=== PATIENT | female | born 1930 | race Caucasian/White ===

== ENCOUNTER → 2016-06-27 | Outpatient (CLI) | payer MEDICARE, OTHER ==
--- NOTE | 2016-06-27 12:31 | XR ---
EXAMINATION TYPE: XR chest 2V DATE OF EXAM: 06/27/2016 12:11 PM COMPARISON: 06/27/2015 HISTORY: Shortness of breath FINDINGS: The lungs are clear and there is no pneumothorax, pleural effusion, or focal pneumonia. Heart is mar kedly enlarged and there is postoperative change. Hyperinflation suggests COPD. Hypertrophic change o f the spine noted. IMPRESSION: 1. Stable cardiomegaly. No overt failure. Left suprahilar 1 cm nodule noted. Consider CT follow-up.
== END | disposition home or self-care (01) ==
LOC: RADXRMAIN 11:57
PROVIDERS: ATTEND Family Medicine
DX: I50.22 Chronic systolic (congestive) heart failure (principal); R91.1 Solitary pulmonary nodule; I51.7 Cardiomegaly
CPT/HCPCS: 71020

== ENCOUNTER → 2016-07-27 | Outpatient (CLI) | payer MEDICARE, OTHER ==
[2016-07-27 11:51] LABS: Blood Urea Nitrogen 23 mg/dL (7-17); Non-African American GFR(MDRD) >60 (>60 ml/min/1.73 sqM)
--- NOTE | 2016-07-27 12:37 | CT ---
EXAMINATION TYPE: CT chest w con DATE OF EXAM: 07/27/2016 12:21 PM COMPARISON: NONE HISTORY: Lung nodule CT DLP: 322.3 mGycm Automated exposure control for dose reduction was used. CONTRAST: CT scan of the chest is performed with IV Contrast, patient injected with 100 ml mL of Omnipaque 300. FINDINGS: LUNGS: The lungs are grossly clear, there is no concerning parenchymal mass or nodule identified. Hyp erinflation compatible with COPD. There is no pleural effusion or pneumothorax seen. The tracheobron chial tree is patent. MEDIASTINUM: There are no greater than 1 cm hilar or mediastinal lymph nodes. No pericardial effusi on is seen. Thoracic aorta is of normal caliber. The heart is enlarged. UPPER ABDOMEN: Splenic granulomas identified. OTHER: No additional significant abnormality is seen. IMPRESSION: 1. COPD changes. 2. Cardiomegaly.
== END ==
LOC: RADCTMAIN 11:17
PROVIDERS: ATTEND Family Medicine
DX: J44.9 Chronic obstructive pulmonary disease, unspecified (principal); I51.7 Cardiomegaly
CPT/HCPCS: 82565; 84520; 71260; 36415; Q9967

== ENCOUNTER → 2018-04-10 | Outpatient (CLI) | payer MEDICARE, OTHER | END | disposition home or self-care (01) | LOC: LABWHC1 09:29 | PROVIDERS: ATTEND Family Medicine | DX: E87.5 Hyperkalemia (principal) | CPT/HCPCS: 36415; 84132 ==

== ENCOUNTER → 2018-11-19 | Outpatient (CLI) | payer MEDICARE, OTHER ==
--- NOTE | 2018-11-19 14:42 | XR ---
EXAMINATION TYPE: XR chest 2V DATE OF EXAM: 11/19/2018 COMPARISON: Prior chest x-ray 06/27/2016 HISTORY: I 50.22, cough TECHNIQUE: Frontal and lateral views of the chest are obtained. FINDINGS: Prominent lung volumes suggest underlying COPD. There are likely coronary artery calcifica tions, patient is post median sternotomy. Patient is rotated. Interstitium is increased. No evident p neumothorax or pleural effusion. Prominence of pulmonary artery is suggestive of underlying pulmonary artery hypertension. Heart is likely enlarged but may be accentuated in its appearance due to rotati on. Aorta is dense. IMPRESSION: Correlate for pulmonary venous hypertension and interstitial edema. Possible underlying pulmonary artery hypertension.
== END | disposition home or self-care (01) ==
LOC: RADXRMAIN 11:23
PROVIDERS: ATTEND Family Medicine
DX: I50.22 Chronic systolic (congestive) heart failure (principal)
CPT/HCPCS: 71046

== ENCOUNTER 2018-11-21 10:26 | Inpatient (IN) | payer MEDICARE, OTHER ==
[2018-11-21] MEDS ORDERED: ACETAMINOPHEN TAB 325 MG TAB PO STA (10:59)
[2018-11-21 11:45] LABS: Basophils % (A) 0 %; Eosinophils # (A) 0.2 k/uL (0-0.7); Eosinophils % (A) 2 %; HCT 35.2 % (34.0-46.0); HGB 11.5 gm/dL (11.4-16.0); Lymphocytes # (A) 1.1 k/uL (1.0-4.8); Lymphocytes % (A) 13 %; MCH 30.1 pg (25.0-35.0); MCHC 32.8 g/dL (31.0-37.0); Mean Platelet Volume 7.2; Monocytes # (A) 0.4 k/uL (0-1.0); Monocytes % (A) 5 %; Neutrophils % (A) 80 %; Platelet Count 199 k/uL (150-450); RBC 3.83 m/uL (3.80-5.40); RDW 13.5 % (11.5-15.5); WBC 8.7 k/uL (3.8-10.6)
[2018-11-21 11:52] LABS: ALT 44 U/L (9-52); AST 77 U/L (14-36); African American GFR (CKD) >90 (>60 ml/min/1.73 sqM); Albumin 3.3 g/dL (3.5-5.0); Alkaline Phosphatase 78 U/L (38-126); Anion Gap 8 mmol/L; Blood Urea Nitrogen 19 mg/dL (7-17); Calcium 8.6 mg/dL (8.4-10.2); Carbon Dioxide 32 mmol/L (22-30); Chloride 98 mmol/L (98-107); Glucose 110 mg/dL (74-99); Potassium 3.1 mmol/L (3.5-5.1); Sodium 138 mmol/L (137-145); Total Bilirubin 1.2 mg/dL (0.2-1.3); Total Protein 6.1 g/dL (6.3-8.2)
[2018-11-21 12:02] LABS: Partial Thromboplastin Time 25.7 sec (22.0-30.0); Prothrombin Time 10.6 sec (9.0-12.0)
--- NOTE | 2018-11-21 12:21 | ED ---
Weakness HPI - General Chief complaint: Weakness Stated complaint: cough, weakness Time Seen by Provider: 11/21/18 10:59 Source: patient Mode of arrival: wheelchair Limitations: no limitations - History of Present Illness Initial comments: 87-year-old female presenting today for chief complaint of cough 1 week. Patient states she also feels slightly weak. Patient denies any urinary symptoms. Patient denies any chest pain she denies a shorts of breath. Denies any back pain. Patient denies a nausea vomiting or diarrhea. Patient states she was started on Augmentin Monday after presenting to the urgent care facility where chest x-ray was obtained. She states that she had. The Augmentin and discontinued this medication. She only took one dose. Remaining review of system negative. Upon arrival patient appears well no signs of acute distress. Patient is oxygen on room air. Heart rate within normal limits. However patient is febrile. Family was concerned about pneumonia and that is why they present to the emergency department today. - Related Data Home Medications Medication Instructions Recorded Confirmed ALPRAZolam [Xanax] 0.375 mg PO Q8H PRN 06/27/15 11/21/18 Atorvastatin [Lipitor] 10 mg PO DAILY 06/27/15 11/21/18 Furosemide [Lasix] 40 mg PO DAILY 06/27/15 11/21/18 Metoprolol Tartrate [Lopressor] 50 mg PO BID 06/27/15 11/21/18 amLODIPine [Norvasc] 10 mg PO DAILY 06/27/15 11/21/18 Allergies Allergy/AdvReac Type Severity Reaction Status Date / Time No Known Allergies Allergy Verified 11/21/18 10:57 Review of Systems ROS Statement: Those systems with pertinent positive or pertinent negative responses have been documented in the HPI. ROS Other: All systems not noted in ROS Statement are negative. Past Medical History Past Medical History: Heart Failure, Hypertension, Osteoarthritis (OA) History of Any Multi-Drug Resistant Organisms: None Reported Past Surgical History: Coronary Bypass/CABG Additional Past Surgical History / Comment(s): open heart surgery about 22 years ago Past Anesthesia/Blood Transfusion Reactions: No Reported Reaction Past Psychological History: No Psychological Hx Reported Smoking Status: Never smoker Past Alcohol Use History: None Reported Past Drug Use History: None Reported General Exam - General Exam Comments Initial Comments: General: The patient is awake and alert, in no distress Eye: +3 mm pupils are equal, round and reactive to light, extra-ocular movements are intact. No nystagmus. There is normal conjunctiva bilaterally. No signs of icterus. No photophobia Ears, nose, mouth and throat: There are moist mucous membranes and no oral lesions. Oropharynx was not erythematous there is no tonsillar enlargement exudates or lesions. Uvula midline. Tympanic membranes are not erythematous or is no effusions bulging or retraction. No tenderness to palpation of the mastoid. No anterior cervical lymphadenopathy. Rhinorrhea, clear and bilateral nares. No tripoding, no drooling. Neck: The neck is supple, there is no tenderness or JVD. No nuchal rigidity Cardiovascular: There is a regular rate and rhythm. No murmur, rub or gallop is appreciated. Respiratory: Right lung base has the rales. Rhonchi noted throughout. No wheezing. No stridor. No retractions or abdominal breathing. Gastrointestinal: Soft, non-distended, non-tender abdomen without masses or organomegaly noted. There is no rebound or guarding present. Bowel sounds are unremarkable. Musculoskeletal: Normal ROM, no tenderness. Strength 5/5. Sensation intact. Radial pulses equal bilaterally 2+. Neurological: A&O x 3. CN II-XII intact, There are no obvious motor or sensory deficits. Coordination appears grossly intact. Speech appears normal, no muffling. Skin: Skin is warm and dry and no rashes or lesions are noted.LE edema noted. Psychiatric: Cooperative Limitations: no limitations Course Vital Signs 11/21/18 11/21/18 11/21/18 10:35 11:30 11:35 Temperature 99.8 F H Pulse Rate 77 72 Pulse Rate [ 75 Bilateral] Respiratory 20 20 Rate Blood Pressure 120/49 118/59 O2 Sat by Pulse 92 L 95 Oximetry 11/21/18 11/21/18 11/21/18 12:00 12:30 13:00 Temperature Pulse Rate 72 76 Pulse Rate [ Bilateral] Respiratory 21 20 21 Rate Blood Pressure 116/63 119/79 127/70 O2 Sat by Pulse 95 97 96 Oximetry 11/21/18 14:18 Temperature 98.2 F Pulse Rate 69 Pulse Rate [ Bilateral] Respiratory 19 Rate Blood Pressure 122/80 O2 Sat by Pulse 97 Oximetry EKG Findings - EKG Comments: EKG Findings:: Ventricular rate 74 bpm, QRS 92 ms, QT/QTC 4:30/477. This appears to be atrial fibrillation, rate controlled versus 4:1, upon chart review-- EKG appears very similar to that of most recent previous on file. NO acute findings. NO ST elevvation or depression. Medical Decision Making - Medical Decision Making Appearing 87-year-old female presented for cough. On arrival. Concern for pneumonia. Significant right lobar pneumonia on a chest x-ray which I did review personally. Patient's laboratory studies reveal No leukocytosis. Mild hypokalemia patient had this replaced orally. Since lactic acid is within normal limits. Patient has positive nitrates and urinalysis convincing of a urinary tract infection. Patient was given 1 g of ceftriaxone in the emergency department for coverage of pneumonia community-acquired and earache tract infection. Patient denies any recent hospitalization. Patient has not been on a regimen of antibiotic she took a single dose of Augmentin. After discussing case with him provider Dr. Reis reviewed imaging studies as well as EKG. He recommended admission to Dr. bhagat. Findings were discussed the patient she is agreeable to admission. Patient transferred to floor in stable condition appearing well - Lab Data Result diagrams: 11/21/18 11:30 11/21/18 11:30 Lab Results 11/21/18 11/21/18 11/21/18 Range/Units 11:30 11:30 11:30 WBC 8.7 (3.8-10.6) k/uL RBC 3.83 (3.80-5.40) m/uL Hgb 11.5 (11.4-16.0) gm/dL Hct 35.2 (34.0-46.0) % MCV 92.0 (80.0-100.0) fL MCH 30.1 (25.0-35.0) pg MCHC 32.8 (31.0-37.0) g/dL RDW 13.5 (11.5-15.5) % Plt Count 199 (150-450) k/uL Neutrophils % 80 % Lymphocytes % 13 % Monocytes % 5 % Eosinophils % 2 % Basophils % 0 % Neutrophils # 7.0 (1.3-7.7) k/uL Lymphocytes # 1.1 (1.0-4.8) k/uL Monocytes # 0.4 (0-1.0) k/uL Eosinophils # 0.2 (0-0.7) k/uL Basophils # 0.0 (0-0.2) k/uL PT (9.0-12.0) sec INR (<1.2) APTT (22.0-30.0) sec Sodium 138 (137-145) mmol/L Potassium 3.1 L (3.5-5.1) mmol/L Chloride 98 (98-107) mmol/L Carbon Dioxide 32 H (22-30) mmol/L Anion Gap 8 mmol/L BUN 19 H (7-17) mg/dL Creatinine 0.69 (0.52-1.04) mg/dL Est GFR (CKD-EPI)AfAm >90 (>60 ml/min/1.73 sqM) Est GFR (CKD-EPI)NonAf 78 (>60 ml/min/1.73 sqM) Glucose 110 H (74-99) mg/dL Plasma Lactic Acid Jonas 1.0 (0.7-2.0) mmol/L Calcium 8.6 (8.4-10.2) mg/dL Total Bilirubin 1.2 (0.2-1.3) mg/dL AST 77 H (14-36) U/L ALT 44 (9-52) U/L Alkaline Phosphatase 78 (38-126) U/L Total Protein 6.1 L (6.3-8.2) g/dL Albumin 3.3 L (3.5-5.0) g/dL Urine Color Urine Appearance (Clear) Urine pH (5.0-8.0) Ur Specific [place] (1.001-1.035) Urine Protein (Negative) Urine Glucose (UA) (Negative) Urine Ketones (Negative) Urine Blood (Negative) Urine Nitrite (Negative) Urine Bilirubin (Negative) Urine Urobilinogen (<2.0) mg/dL Ur Leukocyte Esterase (Negative) Urine RBC (0-5) /hpf Urine WBC (0-5) /hpf Urine WBC Clumps (None) /hpf Ur Squamous Epith Cells (0-4) /hpf Urine Bacteria (None) /hpf 11/21/18 11/21/18 Range/Units 11:30 12:29 WBC (3.8-10.6) k/uL RBC (3.80-5.40) m/uL Hgb (11.4-16.0) gm/dL Hct (34.0-46.0) % MCV (80.0-100.0) fL MCH (25.0-35.0) pg MCHC (31.0-37.0) g/dL RDW (11.5-15.5) % Plt Count (150-450) k/uL Neutrophils % % Lymphocytes % % Monocytes % % Eosinophils % % Basophils % % Neutrophils # (1.3-7.7) k/uL Lymphocytes # (1.0-4.8) k/uL Monocytes # (0-1.0) k/uL Eosinophils # (0-0.7) k/uL Basophils # (0-0.2) k/uL PT 10.6 (9.0-12.0) sec INR 1.0 (<1.2) APTT 25.7 (22.0-30.0) sec Sodium (137-145) mmol/L Potassium (3.5-5.1) mmol/L Chloride (98-107) mmol/L Carbon Dioxide (22-30) mmol/L Anion Gap mmol/L BUN (7-17) mg/dL Creatinine (0.52-1.04) mg/dL Est GFR (CKD-EPI)AfAm (>60 ml/min/1.73 sqM) Est GFR (CKD-EPI)NonAf (>60 ml/min/1.73 sqM) Glucose (74-99) mg/dL Plasma Lactic Acid Jonas (0.7-2.0) mmol/L Calcium (8.4-10.2) mg/dL Total Bilirubin (0.2-1.3) mg/dL AST (14-36) U/L ALT (9-52) U/L Alkaline Phosphatase (38-126) U/L Total Protein (6.3-8.2) g/dL Albumin (3.5-5.0) g/dL Urine Color Light Yellow Urine Appearance Clear (Clear) Urine pH 6.5 (5.0-8.0) Ur Specific [place] 1.003 (1.001-1.035) Urine Protein Negative (Negative) Urine Glucose (UA) Negative (Negative) Urine Ketones Negative (Negative) Urine Blood Trace H (Negative) Urine Nitrite Positive H (Negative) Urine Bilirubin Negative (Negative) Urine Urobilinogen <2.0 (<2.0) mg/dL Ur Leukocyte Esterase Moderate H (Negative) Urine RBC 1 (0-5) /hpf Urine WBC 16 H (0-5) /hpf Urine WBC Clumps Rare H (None) /hpf Ur Squamous Epith Cells <1 (0-4) /hpf Urine Bacteria Moderate H (None) /hpf Disposition Clinical Impression: Pneumonia, UTI (urinary tract infection), Fever, Cough Disposition: ADMITTED IP TO THIS HOSP Condition: Stable Is patient prescribed a controlled substance at d/c from ED?: No Time of Disposition: 14:13 Decision to Admit Reason: Admit from EC Decision Date: 11/21/18 Decision Time: 14:13
--- NOTE | 2018-11-21 12:24 | XR ---
EXAMINATION TYPE: XR chest 2V DATE OF EXAM: 11/21/2018 COMPARISON: 11/19/2018 INDICATION: Pain cough weakness TECHNIQUE: Frontal and lateral views of the chest are obtained. FINDINGS: The heart size is largely prominent. The pulmonary vasculature is normal. There is a right middle lobe infiltrate. Correlate for pneumonia. Findings are worsening from compari son.. There is hyperinflation flattening the diaphragms and increased retrosternal airspace. Finding s can BE compatible COPD. IMPRESSION: 1. Right middle lobe infiltrate. Correlate for worsening pneumonia. 2. Findings are likely superimposed on COPD.
[2018-11-21] MEDS: SODIUM CHLORIDE 0.9% 500 ML 500 ML IV SCH ×2 (12:38→13:12)
[2018-11-21] MEDS ORDERED: cefTRIAXone IN SWFI 1,000 MG/10 ML SYRINGE IVP STA (12:53)
[2018-11-21] MEDS ORDERED: POTASSIUM CHLORIDE ER 20 MEQ TAB.ER PO STA (12:53)
[2018-11-21 13:20] LABS: Appearance,Urine Clear (Clear); Bacteria,Urine Moderate /hpf; Bilirubin,Urine Negative (Negative); Blood,Urine Trace (Negative); Color,Urine Light Yellow; Glucose,Urine (UA) Negative (Negative); Ketones,Urine Negative (Negative); Leukocyte Esterase,Urine Moderate (Negative); Nitrite,Urine Positive (Negative); PH, Urine 6.5 (5.0-8.0); Protein,Urine Negative (Negative); RBC,Urine 1 /hpf (0-5); Specific Gravity,Urine 1.003 (1.001-1.035); Squamous Epithelial Cell,Urine <1 /hpf (0-4); Urobilinogen,Urine <2.0 mg/dL (<2.0); WBC,Urine 16 /hpf (0-5)
[2018-11-21] MEDS ORDERED: ACETAMINOPHEN TAB 325 MG TAB PO PRN (14:11)
[2018-11-21] MEDS ORDERED: IBUPROFEN 400 MG TAB PO PRN (14:11)
[2018-11-21] MEDS ORDERED: NALOXONE 0.4 MG/ML 1 ML VIAL IV PRN (14:11)
[2018-11-21] MEDS ORDERED: SODIUM CHLORIDE 0.9% 1,000 ML IV SCH (14:15)
[2018-11-21] MEDS: METOPROLOL TARTRATE 50 MG TAB PO SCH (22:18)
--- NOTE | 2018-11-21 23:03 | P.HPIM ---
History of Present Illness H&P Date: 11/21/18 Chief Complaint: Cough History of present complaint: This is a pleasant 87-year-old patient of Dr. Brooks. Chronic stable medical conditions include hypertension, Vipul arthritis, coronary artery disease with a bypass. Also has underlying hyperlipidemia and anxiety. For about 10 days patient is becoming increasingly short of breath. The cough. There is little sputum. Decreased appetite and rundown. They've had a low-grade fever. Some orthopnea. Mild edema. Admitted for the same. Review of systems: GEN.: Tired EYES: None HEENT: None NECK: None RESPIRATORY: As above] CARDIOVASCULAR: As above GASTROINTESTINAL: None GENITOURINARY: None MUSCULOSKELETAL: Some pain in the joints LYMPHATICS: None HEMATOLOGICAL: None PSYCHIATRY: Anxious NEUROLOGICAL: None Social history: Does not smoke or drink alcohol. This with son and [id number]. Does use a walker. Family history: Reviewed, noncontributory presentation Physical examination: VITAL SIGNS: 99.8, 77, 20, 120/49, 92% room air GENERAL: Average built, sitting up, intermittent cough. EYES: Pupils equal. Conjunctiva normal. HEENT: External appearance of nose and ears normal, oral cavity grossly normal. NECK: JVD possible raised; masses not palpable. HEART: First and second heart sounds are normal; mild edema. LUNGS: Respiratory rate increased with basal crackles. ABDOMEN: Soft, nontender, liver spleen not palpable, no masses palpable. LYMPHATICS: No lymph nodes palpable in the axilla and neck. PSYCH: Alert and oriented x3; mood and affect normal. NEUROLOGICAL: Cranial nerves grossly intact; no facial asymmetry, power and sensation grossly intact. MUSCULAR schedule: Evidence of osteoarthritis Investigations, reviewed in the clinical context: Chest x-ray film personally reviewed by me shows cardiomegaly venous prominence EKG tracing personally reviewed by me shows questionable A. fib Assessment: -Acute on chronic congestive heart failure from underlying coronary artery disease EF not known -Coronary artery disease with prior history of bypass -Essential hypertension -Primary osteoarthritis -Acute tracheal bronchitis -Hyperlipidemia -Anxiety not otherwise specified Plan: Patient be started on IV Lasix. Put on telemetry. We'll order 2-D echocardiogram. We will consult cardiology. Home medications are reviewed. Care was discussed with the patient. Patient also put on Omnicef. Past Medical History Past Medical History: Heart Failure, Hypertension, Osteoarthritis (OA) History of Any Multi-Drug Resistant Organisms: None Reported Past Surgical History: Coronary Bypass/CABG Additional Past Surgical History / Comment(s): open heart surgery about 22 years ago Past Anesthesia/Blood Transfusion Reactions: No Reported Reaction Past Psychological History: No Psychological Hx Reported Smoking Status: Never smoker Past Alcohol Use History: None Reported Past Drug Use History: None Reported Medications and Allergies Home Medications Medication Instructions Recorded Confirmed Type ALPRAZolam [Xanax] 0.375 mg PO Q8H PRN 06/27/15 11/21/18 History Atorvastatin [Lipitor] 10 mg PO DAILY 06/27/15 11/21/18 History Furosemide [Lasix] 40 mg PO DAILY 06/27/15 11/21/18 History Metoprolol Tartrate [Lopressor] 50 mg PO BID 06/27/15 11/21/18 History amLODIPine [Norvasc] 10 mg PO DAILY 06/27/15 11/21/18 History Allergies Allergy/AdvReac Type Severity Reaction Status Date / Time No Known Allergies Allergy Verified 11/21/18 10:57 Physical Exam Vitals: Vital Signs Temp Pulse Pulse Pulse Resp BP BP 11/21/18 20:28 97.8 F 76 20 109/65 11/21/18 15:50 98.0 F 70 16 134/83 11/21/18 14:18 98.2 F 69 19 122/80 11/21/18 13:00 21 127/70 11/21/18 12:30 76 20 119/79 11/21/18 12:00 72 21 116/63 11/21/18 11:35 75 11/21/18 11:30 72 20 118/59 11/21/18 10:35 99.8 F H 77 20 120/49 Pulse Ox 11/21/18 20:28 92 L 11/21/18 15:50 96 11/21/18 14:18 97 11/21/18 13:00 96 11/21/18 12:30 97 11/21/18 12:00 95 11/21/18 11:35 11/21/18 11:30 95 11/21/18 10:35 92 L Intake and Output 11/21/18 11/21/18 11/21/18 06:59 14:59 22:59 Intake Total 540 Balance 540 Intake: Oral 540 Other: # Voids 2 Weight 67.132 kg Results CBC & Chem 7: 11/21/18 11:30 11/21/18 11:30 Labs: Abnormal Lab Results - Last 24 Hours (Table) 11/21/18 11/21/18 Range/Units 11:30 12:29 Potassium 3.1 L (3.5-5.1) mmol/L Carbon Dioxide 32 H (22-30) mmol/L BUN 19 H (7-17) mg/dL Glucose 110 H (74-99) mg/dL AST 77 H (14-36) U/L Total Protein 6.1 L (6.3-8.2) g/dL Albumin 3.3 L (3.5-5.0) g/dL Urine Blood Trace H (Negative) Urine Nitrite Positive H (Negative) Ur Leukocyte Esterase Moderate H (Negative) Urine WBC 16 H (0-5) /hpf Urine WBC Clumps Rare H (None) /hpf Urine Bacteria Moderate H (None) /hpf Microbiology - Last 24 Hours (Table) 11/21/18 12:29 Urine Culture - Preliminary Urine,Voided Thrombosis Risk Factor Assmnt - Choose All That Apply Each Factor Represents 1 point: Obesity (BMI >25) Other Risk Factors: Yes Each Risk Factor Represents 3 Points: Age 75 years or older Other congenital or acquired thrombophilia - If yes, enter type in comment: No Thrombosis Risk Factor Assessment Total Risk Factor Score: 4 Thrombosis Risk Factor Assessment Level: Moderate Risk
[2018-11-22] MEDS: BENZONATATE 100 MG CAP PO PRN ×3 (01:37→23:01)
[2018-11-22] MEDS: FUROSEMIDE 10 MG/ML 4 ML VIAL IV SCH ×2 (05:03→19:22)
[2018-11-22] MEDS ORDERED: FUROSEMIDE 40 MG TAB PO SCH (09:00)
[2018-11-22] MEDS: ATORVASTATIN 10 MG TAB PO SCH (11:17)
[2018-11-22] MEDS: METOPROLOL TARTRATE 50 MG TAB PO SCH ×2 (11:17→21:25)
[2018-11-22] MEDS: amLODIPine 10 MG TAB PO SCH (11:17)
[2018-11-22] MEDS: CEFDINIR 300 MG CAP PO SCH ×2 (11:17→21:25)
--- NOTE | 2018-11-22 12:20 | ECHOF ---
Referral Reason:sob MEASUREMENTS -------- HEIGHT: 154.9 cm WEIGHT: 66.7 kg BP: 151/72 RVIDd: 2.9 cm (< 3.3) IVSd: 1.2 cm (0.6 - 1.1) LVIDd: 4.6 cm (3.9 - 5.3) LVPWd: 1.1 cm (0.6 - 1.1) IVSs: 1.6 cm LVIDs: 3.4 cm LVPWs: 1.5 cm LA Diam: 4.5 cm (2.7 - 3.8) LAESV Index (A-L): 36.59 ml/m Ao Diam: 2.8 cm (2.0 - 3.7) AV Cusp: 1.7 cm (1.5 - 2.6) MV EXCURSION: 16.095 mm (> 18.000) MV EF SLOPE: 95 mm/s (70 - 150) EPSS: 0.4 cm RAP: 5.00 mmHg RVSP: 45.48 mmHg FINDINGS -------- Atrial fibrillation. This was a technically adequate study. The left ventricular size is normal. There is borderline concentric left ventricular hypertrophy. Overall left ventricular systolic function is normal with, an EF between 60 - 65 %. The right ventricle is normal in size. LA is moderately dilated 34-39 ml/m2 The right atrium is normal in size. Interatrial and interventricular septum intact. Aortic valve is trileaflet and is mildly thickened. The mitral valve leaflets are mildly thickened. Mild mitral annular calcification present. Mild m itral regurgitation is present. Mild tricuspid regurgitation present. There is mild to moderate pulmonary hypertension. Trace/mild (physiologic) pulmonic regurgitation. The aortic root size is normal. Normal inferior vena cava with normal inspiratory collapse consistent with estimated right atrial pre ssure of 5 mmHg. There is no pericardial effusion. CONCLUSIONS -------- 1. Atrial fibrillation. 2. This was a technically adequate study. 3. The left ventricular size is normal. 4. There is borderline concentric left ventricular hypertrophy. 5. Overall left ventricular systolic function is normal with, an EF between 60 - 65 %. 6. The right ventricle is normal in size. 7. LA is moderately dilated 34-39 ml/m2 8. The right atrium is normal in size. 9. Interatrial and interventricular septum intact. 10. Aortic valve is trileaflet and is mildly thickened. 11. The mitral valve leaflets are mildly thickened. 12. Mild mitral annular calcification present. 13. Mild mitral regurgitation is present. 14. Mild tricuspid regurgitation present. 15. There is mild to moderate pulmonary hypertension. 16. Trace/mild (physiologic) pulmonic regurgitation. 17. The aortic root size is normal. 18. Normal inferior vena cava with normal inspiratory collapse consistent with estimated right atrial pressure of 5 mmHg. 19. There is no pericardial effusion. STAFF READINESS OFFICER: Eneida Moreira RDCS
--- NOTE | 2018-11-22 12:44 | P.CRDCN ---
History of Present Illness History of present illness: This is a pleasant 87-year-old female past medical history significant for coronary artery disease s/p bypass grafting, chronic atrial fibrillation, hypertension, dyslipidemia, intracranial bleed in the past and osteoarthritis. She has followed in the past with Dr. Souza, however hasn't been to the office since 2016. We have been asked to see her in consultation for symptoms of heart failure. She states she has overall not been feeling well for the last week or so. She has been coughing bringing up clear phlegm, short of breath worse with exertion, orthopneic and increasingly fatigued. She has been initiated on IV lasix 40 mg TID and oral antibiotics for bronchitis. She is seen and examined sitting up in the chair in no acute distress. She denies chest pain, dizziness, palpitations, nausea, vomiting or diaphoresis. EKG reveals atrial fibrillation with controlled ventricular response, heart rate of 74 with poor R-wave progression. Chest x-ray reveals an infiltrate in the middle right lobe. Hyperinflation and flattening of the diaphragms noted. Echocardiogram obtained reveals preserved LV systolic function with ejection fraction 60-65%, mild MR, mild TR and mild to moderate pulmonary hypertension with an RVSP of 45 mmHg. Laboratory data reviewed, WBC 8.7, hemoglobin 11.5, platelets 199, sodium 138, potassium 3.1, creatinine 0.69, proBNP 3220. Daily cardiac medications include Lipitor 10 mg daily, Lasix 40 mg daily, Lopressor 50 mg twice a day and amlodipine 10 mg daily. At the time of my exam: CONSTITUTIONAL: Denies fever. Denies chills. EYES: Denies blurred vision. Denies vision changes. Denies eye pain. EARS, NOSE, MOUTH & THROAT: Denies headache. Denies sore throat. Denies ear pain. CARDIOVASCULAR: Denies chest pain. Denies shortness of breath. Denies orthopnea. Denies PND. Denies palpitations. RESPIRATORY: Denies cough. GASTROINTESTINAL: Denies abdominal pain. Denies diarrhea. Denies constipation. Denies nausea. Denies vomiting. MUSCULOSKELETAL: Denies myalgias. INTEGUMENTARY: Denies pruitis. Denies rash. NEUROLOGIC: Denies numbness. Denies tingling. Denies weakness. PSYCHIATRIC: Denies anxiety. Denies depression. ENDOCRINE: Denies fatigue. Denies weight change. Denies polydipsia. Denies polyurina. GENITOURINARY: Denies burning, hematuria or urgency with micturation. HEMATOLOGIC: Denies history of anemia. Denies bleeding. Blood pressure 151/72 heart rate 75 afebrile maintaining oxygen saturation on room air GENERAL: This is a 87-year-old female in no apparent distress at the time of my examination. HEENT: Head is atraumatic, normocephalic. Pupils are equal, round. Sclerae anicteric. Conjunctivae are clear. Mucous membranes of the mouth are moist. Neck is supple. There is no jugular venous distention. No carotid bruit is heard. LUNGS: Clear to auscultation no wheezes, rales or rhonchi. No chest wall tenderness is noted on palpation or with deep breathing. HEART: Irregular rate and rhythm with systolic ejection murmur at the left sternal border, no rubs or gallops. S1 and S2 heard. ABDOMEN: Soft, nontender. Bowel sounds are heard. No organomegaly noted. EXTREMITIES: Trace pitting edema bilaterally. No calf tenderness noted. VASCULAR: Radial and dorsalis pedis pulses palpated, no evidence of clubbing. NEUROLOGIC: Patient is awake, alert and oriented x3. ASSESSMENT Acute on chronic diastolic heart failure, mild. Hypokalemia Pneumonia Chronic persistent atrial fibrillation not on senior care anti-coagulation secondary to intracranial bleed 2016 History of intracranial bleed 2016, high risk for rebleeding. Not a candidate for roasterman anticoagulation Coronary artery disease s/p bypass grafting Hypertension Dyslipidemia PLAN Decrease lasix to 40 mg IV daily. Will transition to PO diuretics tomorrow. Follow electrolytes and kidney function in the morning. Document accurate intake and output along with daily weights. Repeat potassium level and replace per protocol. Thank you kindly for this consultation. Nurse Practitioner note has been reviewed, I agree with a documented findings and plan of care. Patient was seen and examined. Past Medical History Past Medical History: Heart Failure, Hypertension, Osteoarthritis (OA) History of Any Multi-Drug Resistant Organisms: None Reported Past Surgical History: Coronary Bypass/CABG Additional Past Surgical History / Comment(s): open heart surgery about 22 years ago Past Anesthesia/Blood Transfusion Reactions: No Reported Reaction Past Psychological History: No Psychological Hx Reported Smoking Status: Never smoker Past Alcohol Use History: None Reported Past Drug Use History: None Reported Medications and Allergies Home Medications Medication Instructions Recorded Confirmed Type ALPRAZolam [Xanax] 0.375 mg PO Q8H PRN 06/27/15 11/21/18 History Atorvastatin [Lipitor] 10 mg PO DAILY 06/27/15 11/21/18 History Furosemide [Lasix] 40 mg PO DAILY 06/27/15 11/21/18 History Metoprolol Tartrate [Lopressor] 50 mg PO BID 06/27/15 11/21/18 History amLODIPine [Norvasc] 10 mg PO DAILY 06/27/15 11/21/18 History Allergies Allergy/AdvReac Type Severity Reaction Status Date / Time No Known Allergies Allergy Verified 11/21/18 10:57 Physical Exam Vitals: Vital Signs Temp Pulse Pulse Pulse Resp BP BP 11/22/18 07:19 98.5 F 75 16 151/72 11/22/18 05:00 83 141/72 11/22/18 03:15 18 11/22/18 01:30 98.5 F 72 18 121/62 11/22/18 00:15 18 11/21/18 23:25 71 22 139/74 11/21/18 20:28 97.8 F 76 20 109/65 11/21/18 15:50 98.0 F 70 16 134/83 11/21/18 14:18 98.2 F 69 19 122/80 11/21/18 13:00 21 127/70 11/21/18 12:30 76 20 119/79 Pulse Ox 11/22/18 07:19 93 L 11/22/18 05:00 11/22/18 03:15 11/22/18 01:30 93 L 11/22/18 00:15 11/21/18 23:25 97 11/21/18 20:28 92 L 11/21/18 15:50 96 11/21/18 14:18 97 11/21/18 13:00 96 11/21/18 12:30 97 Intake and Output 11/21/18 11/22/18 11/22/18 22:59 06:59 14:59 Intake Total 540 50 Balance 540 50 Intake: Oral 540 50 Other: Voiding Method Toilet # Voids 1 1 Weight 66.8 kg Results 11/21/18 11:30 11/21/18 11:30 Current Medications Generic Name Dose Route Start Last Admin Trade Name Freq PRN Reason Stop Dose Admin Acetaminophen 650 mg 11/21/18 14:11 Tylenol Tab PO Q6HR PRN Mild Pain or Fever > 100.5 Alprazolam 0.375 mg 11/21/18 16:21 Xanax PO Q8H PRN Anxiety Amlodipine Besylate 10 mg 11/22/18 09:00 11/22/18 11:17 Norvasc PO 10 mg DAILY CELESTE Administration Atorvastatin Calcium 10 mg 11/22/18 09:00 11/22/18 11:17 Lipitor PO 10 mg DAILY CELESTE Administration Benzonatate 200 mg 11/22/18 01:25 11/22/18 11:16 Tessalon Perles PO 200 mg TID PRN Administration Cough Cefdinir 300 mg 11/22/18 09:00 11/22/18 11:17 Omnicef PO 300 mg BID CELESTE Administration Furosemide 40 mg 11/23/18 09:00 Lasix IV DAILY CELESTE Ibuprofen 400 mg 11/21/18 14:11 Motrin PO Q6HR PRN Mild Pain or Fever > 100.5 Metoprolol Tartrate 50 mg 11/21/18 21:00 11/22/18 11:17 Lopressor PO 50 mg BID CELESTE Administration Naloxone HCl 0.2 mg 11/21/18 14:11 Narcan IV Q2M PRN Opioid Reversal Intake and Output 11/21/18 11/22/18 11/22/18 22:59 06:59 14:59 Intake Total 540 50 Balance 540 50 Intake: Oral 540 50 Other: Voiding Method Toilet # Voids 1 1 Weight 66.8 kg 11/21/18 11:30 11/21/18 11:30
[2018-11-22] MEDS ORDERED: Potassium Replacement Protocol 1 EACH MISC MISCELLANE PRN (18:46)
[2018-11-22] MEDS ORDERED: FUROSEMIDE 10 MG/ML 4 ML VIAL IV SCH (21:00)
[2018-11-22] MEDS: POTASSIUM CHLORIDE ER 20 MEQ TAB.ER PO SCH ×2 (21:25→23:00)
--- NOTE | 2018-11-22 23:16 | P.PN ---
Progress Note - Text Progress Note Date: 11/22/18 Chief Complaint: Cough History of present complaint: This is a pleasant 87-year-old patient of Dr. Brooks. Chronic stable medical conditions include hypertension, Vipul arthritis, coronary artery disease with a bypass. Also has underlying hyperlipidemia and anxiety. For about 10 days patient is becoming increasingly short of breath. The cough. There is little sputum. Decreased appetite and rundown. They've had a low-grade fever. Some orthopnea. Mild edema. Admitted for the same. admitting diagnoses-acute CHF exacerbation, acute tracheobronchitis today-bleeding a bit better. Slight cough. did tolerate and diet. got IV Lasix.tired and rundown Review of systems: Was done for constitutional, cardiovascular, GI, pulmonary. relevant finding as above Current medications reviewed that included: IV Lasix 40 mg daily, Omnicef Physical examination: VITAL SIGNS: 98.4, 69, 16, 140 masses 54, 91% room air GENERAL:sitting up, appears more restful. EYES: Pupils equal. Conjunctiva normal. HEENT: External appearance of nose and ears normal, oral cavity grossly normal. NECK: JVD possible raised; masses not palpable. HEART: First and second heart sounds are normal; mild edema. LUNGS: Respiratory rate increased with basal crackles. ABDOMEN: Soft, nontender, liver spleen not palpable, no masses palpable. PSYCH: Alert and oriented x3; mood and affect normal. Investigations, reviewed in the clinical context: potassium 3.3 2-D echo shows EF of 60-65% Assessment: -Acute on chronic congestive heart failureEF 60-65%/tested dysfunction from underlying coronary artery disease -Coronary artery disease with prior history of bypass -Essential hypertension -Primary osteoarthritis -Acute tracheal bronchitis -Hyperlipidemia -Anxiety not otherwise specified -Persistent atrial fibrillation not on anticoagulation because of intracranial bleed in 2016 -Hypokalemia from diarrhea restless Plan: patient remained on IV Lasix. Follow up lites tomorrow. Care was discussed with the patient. Encouraged to sit up in the chair.
[2018-11-23] MEDS: METOPROLOL TARTRATE 50 MG TAB PO SCH ×2 (08:24→20:26)
[2018-11-23] MEDS: amLODIPine 10 MG TAB PO SCH (08:24)
[2018-11-23] MEDS: ATORVASTATIN 10 MG TAB PO SCH (08:24)
[2018-11-23] MEDS: CEFDINIR 300 MG CAP PO SCH ×2 (08:24→20:26)
[2018-11-23] MEDS: FUROSEMIDE 10 MG/ML 4 ML VIAL IV SCH (08:24)
[2018-11-23 09:11] LABS: African American GFR (CKD) >90 (>60 ml/min/1.73 sqM); Anion Gap 10 mmol/L; Blood Urea Nitrogen 12 mg/dL (7-17); Calcium 9.5 mg/dL (8.4-10.2); Carbon Dioxide 30 mmol/L (22-30); Chloride 99 mmol/L (98-107); Glucose 164 mg/dL (74-99); Potassium 3.7 mmol/L (3.5-5.1); Sodium 139 mmol/L (137-145)
[2018-11-23] MEDS ORDERED: POTASSIUM CHLORIDE ER 20 MEQ TAB.ER PO STA (09:21)
[2018-11-23] MEDS: ALPRAZolam 0.25 MG TAB PO PRN (20:26)
--- NOTE | 2018-11-23 21:02 | P.PN ---
Progress Note - Text Progress Note Date: 11/23/18 Chief Complaint: Cough History of present complaint: This is a pleasant 87-year-old patient of Dr. Brooks. Chronic stable medical conditions include hypertension, Vipul arthritis, coronary artery disease with a bypass. Also has underlying hyperlipidemia and anxiety. For about 10 days patient is becoming increasingly short of breath. The cough. There is little sputum. Decreased appetite and rundown. They've had a low-grade fever. Some orthopnea. Mild edema. Admitted for the same. admitting diagnoses-acute CHF exacerbation, acute tracheobronchitis today-feeling better. Breathing is improved. Did tolerate some diet. OVERALL FEELING BETTER Review of systems: Was done for constitutional, cardiovascular, GI, pulmonary. relevant finding as above Current medications reviewed that included: Lasix 40 mg IV daily, Omnicef. Physical examination: VITAL SIGNS: 98, 74, 17, 102/71, 95% on 2 L GENERAL: Sitting up, awake. EYES: Pupils equal. Conjunctiva normal. HEENT: External appearance of nose and ears normal, oral cavity grossly normal. NECK: JVD possible raised; masses not palpable. HEART: First and second heart sounds are normal; mild edema. LUNGS: Respiratory rate increased with decreased crackles. ABDOMEN: Soft, nontender, liver spleen not palpable, no masses palpable. PSYCH: Alert and oriented x3; mood and affect normal. Investigations, reviewed in the clinical context: Potassium 3.7 and creatinine 0.6 2-D echo shows EF of 60-65% Assessment: -Acute on chronic congestive heart failureEF 60-65%/ diastolic dysfunction from underlying coronary artery disease -Coronary artery disease with prior history of bypass -Essential hypertension -Primary osteoarthritis -Acute tracheal bronchitis -Hyperlipidemia -Anxiety not otherwise specified -Persistent atrial fibrillation not on anticoagulation because of intracranial bleed in 2016 -Hypokalemia from diarrhea restless Plan: Patient is slowly improving. Continue with IV Lasix. Encouraged to be out of bed. Follow electrolytes
--- NOTE | 2018-11-24 07:48 | XR ---
EXAMINATION TYPE: XR chest 2V DATE OF EXAM: 11/24/2018 HISTORY: chf. REFERENCE: Previous study dated 11/21/2018. FINDINGS: There has been a midline sternotomy. The lungs are overinflated. The heart is enlarged. There is improved aeration of the right middle lob e. There is a tiny right-sided effusion. IMPRESSION: IMPROVED AERATION, RIGHT LUNG.
[2018-11-24] MEDS: FUROSEMIDE 10 MG/ML 4 ML VIAL IV SCH (08:16)
[2018-11-24] MEDS: METOPROLOL TARTRATE 50 MG TAB PO SCH ×2 (08:17→20:46)
[2018-11-24] MEDS: ATORVASTATIN 10 MG TAB PO SCH (08:17)
[2018-11-24] MEDS: CEFDINIR 300 MG CAP PO SCH ×2 (08:17→20:46)
[2018-11-24] MEDS: amLODIPine 10 MG TAB PO SCH (08:17)
[2018-11-24] MEDS ORDERED: FUROSEMIDE 10 MG/ML 4 ML VIAL IV STA (14:31)
[2018-11-24] MEDS: ALPRAZolam 0.25 MG TAB PO PRN (20:47)
[2018-11-25] MEDS: ATORVASTATIN 10 MG TAB PO SCH (08:59)
[2018-11-25] MEDS: amLODIPine 10 MG TAB PO SCH (08:59)
[2018-11-25] MEDS: FUROSEMIDE 10 MG/ML 4 ML VIAL IV SCH (08:59)
[2018-11-25] MEDS: METOPROLOL TARTRATE 50 MG TAB PO SCH (08:59)
[2018-11-25] MEDS: CEFDINIR 300 MG CAP PO SCH (08:59)
[2018-11-25 15:24] VITALS: BP 128/77; PULSE 80; RESP 15; TEMP 98.5
--- NOTE | 2018-11-25 19:33 | P.PN ---
Progress Note - Text Progress Note Date: 11/24/18 Chief Complaint: Cough History of present complaint: This is a pleasant 87-year-old patient of Dr. Brooks. Chronic stable medical conditions include hypertension, Vipul arthritis, coronary artery disease with a bypass. Also has underlying hyperlipidemia and anxiety. For about 10 days patient is becoming increasingly short of breath. The cough. There is little sputum. Decreased appetite and rundown. They've had a low-grade fever. Some orthopnea. Mild edema. Admitted for the same. admitting diagnoses-acute CHF exacerbation, acute tracheobronchitis today-continues to feel better. Breathing is better. Appetite is improving. Minimal cough Review of systems: Was done for constitutional, cardiovascular, GI, pulmonary. relevant finding as above Current medications reviewed that included: Lasix 40 mg IV daily, Omnicef. Physical examination: Vitals-97.8, 91, 15, 131/69, 91% room air GENERAL: Sitting up, awake. EYES: Pupils equal. Conjunctiva normal. HEENT: External appearance of nose and ears normal, oral cavity grossly normal. NECK: JVD possible raised; masses not palpable. HEART: First and second heart sounds are normal; mild edema. LUNGS: Respiratory rate increased with improvement crackles. ABDOMEN: Soft, nontender, liver spleen not palpable, no masses palpable. PSYCH: Alert and oriented x3; mood and affect normal. Investigations, reviewed in the clinical context: No blood or from today 2-D echo shows EF of 60-65% Assessment: -Acute on chronic congestive heart failureEF 60-65%/ diastolic dysfunction from underlying coronary artery disease -Coronary artery disease with prior history of bypass -Essential hypertension -Primary osteoarthritis -Acute tracheal bronchitis -Hyperlipidemia -Anxiety not otherwise specified -Persistent atrial fibrillation not on anticoagulation because of intracranial bleed in 2016 -Hypokalemia from diarrhea restless Plan: IV Lasix is to be continued. We'll give an extra dose. Hoping patient can go home and next day or so. Care was discussed with the patient.
--- NOTE | 2018-11-25 19:36 | P.DS ---
Providers Date of admission: 11/21/18 14:32 Expected date of discharge: 11/25/18 Attending physician: Drew Chiu Consults: 11/21/18 22:53 Consult Physician Routine Consulting Provider: Olvin Castillo Consult Reason/Comments: CHf Do you want consulting provider notified?: Yes Primary care physician: Jarrod Brooks [facility] Course: Discharge diagnoses: -Acute on chronic congestive heart failureEF 60-65%/ diastolic dysfunction from underlying coronary artery disease -Coronary artery disease with prior history of bypass -Essential hypertension -Primary osteoarthritis -Acute tracheal bronchitis -Hyperlipidemia -Anxiety not otherwise specified -Persistent atrial fibrillation not on anticoagulation because of intracranial bleed in 2016 -Hypokalemia from diarrhea Hospital course t: This is a pleasant 87-year-old patient of Dr. Brooks. Chronic stable medical conditions include hypertension, Vipul arthritis, coronary artery disease with a bypass. Also has underlying hyperlipidemia and anxiety. For about 10 days patient is becoming increasingly short of breath. The cough. There is little sputum. Decreased appetite and rundown. They've had a low-grade fever. Some orthopnea. Mild edema. Admitted for the same. admitting diagnoses-acute CHF exacerbation, acute tracheobronchitis Responded well to Lasix. Was put on Omnicef. Did much better without discharge . Eating better. Edema had gone down Statistical Clerk Advertising: Dr. VC Troy from cardiology Physical examination: Vitals-98.5, 80, 15, 128/77, 94% room air GENERAL: Sitting up, awake. Comfort EYES: Pupils equal. Conjunctiva normal. HEENT: External appearance of nose and ears normal, oral cavity grossly normal. NECK: JVD not raised; masses not palpable. HEART: First and second heart sounds are normal; mild edema. LUNGS: Respiratory rate increased with improvement crackles. ABDOMEN: Soft, nontender, liver spleen not palpable, no masses palpable. PSYCH: Alert and oriented x3; mood and affect normal. Investigations, reviewed in the clinical context: Potassium 3.7 creatinine 0.6 2-D echo shows EF of 60-65% Disposition: Home Patient Condition at Discharge: Stable Plan - Discharge Summary New Discharge Prescriptions: New Potassium Chloride [K-Tab ER] 20 meq PO DAILY #30 tablet.er Cefdinir [Omnicef] 300 mg PO BID #6 cap Continue ALPRAZolam [Xanax] 0.375 mg PO Q8H PRN PRN Reason: Anxiety Metoprolol Tartrate [Lopressor] 50 mg PO BID Atorvastatin [Lipitor] 10 mg PO DAILY amLODIPine [Norvasc] 10 mg PO DAILY Changed Furosemide [Lasix] 40 mg PO BID #60 tab Discharge Medication List ALPRAZolam [Xanax] 0.375 mg PO Q8H PRN 06/27/15 [History] Atorvastatin [Lipitor] 10 mg PO DAILY 06/27/15 [History] Metoprolol Tartrate [Lopressor] 50 mg PO BID 06/27/15 [History] amLODIPine [Norvasc] 10 mg PO DAILY 06/27/15 [History] Cefdinir [Omnicef] 300 mg PO BID #6 cap 11/25/18 [Rx] Furosemide [Lasix] 40 mg PO BID #60 tab 11/25/18 [Rx] Potassium Chloride [K-Tab ER] 20 meq PO DAILY #30 tablet.er 11/25/18 [Rx] Follow up Appointment(s)/Referral(s): cardiology, [Other] - 1 Week [facility], [NON-STAFF] - As Needed Jarrod Brooks DO [Primary Care Provider] - 1-2 days Ambulatory/Diagnostic Orders: Basic Metabolic Panel [LAB.AMB] Time Frame: 3 Days, Location: None Selected Patient Instructions/Handouts: Viral Pneumonia (DC), Urinary Tract Infection in Women (DC) Discharge Disposition: HOME SELF-CARE
== END 2018-11-25 16:03 | disposition home or self-care (01) | DRG 292 ==
LOC: EC 10:26 → 4MS4W 14:32 → 4SSUR 11-22 01:29
PROVIDERS: ADMIT Hospitalist; ATTEND Hospitalist
DX: I11.0 Hypertensive heart disease with heart failure (principal); I48.1 Persistent atrial fibrillation; N39.0 Urinary tract infection, site not specified; E78.5 Hyperlipidemia, unspecified; E87.6 Hypokalemia; F41.9 Anxiety disorder, unspecified; I25.10 Atherosclerotic heart disease of native coronary artery without angina pectoris; I27.20 Pulmonary hypertension, unspecified; I50.33 Acute on chronic diastolic (congestive) heart failure; J20.9 Acute bronchitis, unspecified; M19.90 Unspecified osteoarthritis, unspecified site; B96.1 Klebsiella pneumoniae [K. pneumoniae] as the cause of diseases classified elsewhere; Z79.899 Other long term (current) drug therapy; Z86.73 Personal history of transient ischemic attack (TIA), and cerebral infarction without residual deficits; Z95.1 Presence of aortocoronary bypass graft; I08.1 Rheumatic disorders of both mitral and tricuspid valves
CPT/HCPCS: 36415; 71046; 80048; 80053; 81001; 83605; 83880; 84132; 84145; 85025; 85610; 85730; 87040; 87077; 87086; 87186; 93005; 93306; 96361; 96374; 99285

== ENCOUNTER 2019-09-21 09:51 | Inpatient (IN) | payer MEDICARE, OTHER ==
[2019-09-21 10:37] LABS: Basophils % (A) 1 %; Eosinophils # (A) 0.2 k/uL (0-0.7); Eosinophils % (A) 3 %; HCT 38.7 % (34.0-46.0); HGB 13.1 gm/dL (11.4-16.0); Lymphocytes # (A) 0.9 k/uL (1.0-4.8); Lymphocytes % (A) 14 %; MCH 32.9 pg (25.0-35.0); MCHC 33.7 g/dL (31.0-37.0); MCV 97.6 fL (80.0-100.0); Mean Platelet Volume 8.3; Monocytes # (A) 0.4 k/uL (0-1.0); Monocytes % (A) 6 %; Neutrophils # (A) 5.1 k/uL (1.3-7.7); Neutrophils % (A) 76 %; Platelet Count 175 k/uL (150-450); RBC 3.97 m/uL (3.80-5.40); RDW 13.8 % (11.5-15.5); WBC 6.7 k/uL (3.8-10.6)
[2019-09-21 10:47] LABS: Albumin 3.9 g/dL (3.5-5.0); Calcium 9.2 mg/dL (8.4-10.2); Phosphorus 3.5 mg/dL (2.5-4.5); Potassium 4.3 mmol/L (3.5-5.1); Total Protein 6.9 g/dL (6.3-8.2)
--- NOTE | 2019-09-21 10:59 | XR ---
EXAMINATION TYPE: XR chest 2V DATE OF EXAM: 09/21/2019 HISTORY: sob. REFERENCE: Previous study dated 11/24/2018. FINDINGS: There has been a midline sternotomy. The lungs are overinflated. The heart is enlarged. There are small, bilateral pleural effusions. Ther e is a chronic density silhouetting the right heart border. This may represent chronic right middle l obe atelectasis. Pulmonary vasculature is normal. No edematous changes seen. IMPRESSION: 1. COPD. 2. CARDIOMEGALY. 3. CHRONIC DENSITY SILHOUETTING THE RIGHT HEART BORDER REPRESENTING CHRONIC ATELECTASIS INVOLVING THE RIGHT MIDDLE LOBE.
[2019-09-21] MEDS ORDERED: FUROSEMIDE 10 MG/ML 4 ML VIAL IV STA (11:17)
--- NOTE | 2019-09-21 11:50 | ED ---
General Adult HPI <Lai Roque - Last Filed: 09/21/19 11:51> - General Source: patient, family, RN notes reviewed, old records reviewed Mode of arrival: wheelchair Limitations: no limitations <Ed Cantor - Last Filed: 09/21/19 12:34> - General Chief complaint: Shortness of Breath Stated complaint: SOB Time Seen by Provider: 09/21/19 10:00 - History of Present Illness Initial comments: 88-year-old female patient with past history significant for hypertension, coronary artery disease, congestive heart failure presents to ED for chief complaint of shortness of breath. Patient was difficult last 3 days she has had mild dyspnea. Also reports that she has had leg swelling. Patient does report edly take Lasix 40 mg once per day at night. Denies any chest pain. Patient has been quarantining at home denies any other complaints. Systemic: Pt denies fatigue, fever/chills, rash. Pt denies weakness, night sweats, weight loss. Neuro: Pt denies headache, visual disturbances, syncope or pre-syncope. HEENT: Pt denies ocular discharge or irritation, otalgia, rhinorrhea, pharyngitis or notable lymphadenopathy. Cardiopulmonary: Pt denies chest pain, heart palpitations, dyspnea on exertion. Abdominal/GI: Pt denies abdominal pain, n/v/d. : Pt denies dysuria, burning w/ urination, frequency/urgency. Denies new onset urinary or bowel incontinence. MSK: Pt denies myalgia, loss of strength or function in extremities. Neuro: Pt denies new onset weakness, paresthesias. (Ed Cantor) - Related Data Home Medications Medication Instructions Recorded Confirmed ALPRAZolam [Xanax] 0.375 mg PO Q8H PRN 06/27/15 11/21/18 Atorvastatin [Lipitor] 10 mg PO DAILY 06/27/15 11/21/18 Metoprolol Tartrate [Lopressor] 50 mg PO BID 06/27/15 11/21/18 amLODIPine [Norvasc] 10 mg PO DAILY 06/27/15 11/21/18 Previous Rx's Medication Instructions Recorded Cefdinir [Omnicef] 300 mg PO BID #6 cap 11/25/18 Furosemide [Lasix] 40 mg PO BID #60 tab 11/25/18 Potassium Chloride [K-Tab ER] 20 meq PO DAILY #30 tablet.er 11/25/18 Allergies Allergy/AdvReac Type Severity Reaction Status Date / Time No Known Allergies Allergy Verified 09/21/19 09:58 Review of Systems ROS Other: All systems not noted in ROS Statement are negative. <Lai Roque - Last Filed: 09/21/19 11:51> ROS Other: All systems not noted in ROS Statement are negative. <Ed Cantor - Last Filed: 09/21/19 12:34> ROS Statement: Those systems with pertinent positive or pertinent negative responses have been documented in the HPI. Past Medical History Past Medical History: Coronary Artery Disease (CAD), Heart Failure, Hypertension, Osteoarthritis (OA) History of Any Multi-Drug Resistant Organisms: None Reported Past Surgical History: Coronary Bypass/CABG Additional Past Surgical History / Comment(s): open heart surgery about 22 years ago Past Anesthesia/Blood Transfusion Reactions: No Reported Reaction Past Psychological History: No Psychological Hx Reported Smoking Status: Never smoker Past Alcohol Use History: None Reported Past Drug Use History: None Reported <Ed Cantor - Last Filed: 09/21/19 12:34> General Exam Limitations: no limitations <Ed Cantor - Last Filed: 09/21/19 12:34> - General Exam Comments Initial Comments: Constitutional: NAD, AOX3, Pt has pleasant affect. HEENT: NC/AT, trachea midline, neck supple, no lymphadenopathy. Posterior pharynx non erythematous, without exudates. External ears appear normal, without discharge. Mucous membranes moist. Eyes PERRLA, EOM intact. There is no scleral icterus. No pallor noted. Cardiopulmonary: RRR, no murmurs, rubs or gallops, no JVD noted. Mild crackles noted at lung bases. +2 lower extremity edema noted. Abdominal exam: Abdomen soft and non-distended. Abdomen non-tender to palpation in all 4 quadrants. Bowel sounds active in LLQ. No hepatosplenomegaly. No ecchymosis Neuro: CN II-XII grossly intact. No nuchal rigidity. No raccon eyes, no kate sign, no hemotympanum. No cervical spinal tenderness. MSK: No posterior calf tenderness bilaterally, homans sign negative bilaterally. Posterior tibialis and radial pulse +2 bilaterally. Sensation intact in upper and lower extremities. Full active ROM in upper and lower extremities, 5/5 stregnth. (Ed Cantor) Course Vital Signs 09/21/19 09/21/19 09/21/19 09:54 10:30 11:30 Temperature 98.3 F Pulse Rate 67 62 Respiratory 18 24 16 Rate Blood Pressure 117/71 120/64 O2 Sat by Pulse 97 97 Oximetry Medical Decision Making - Lab Data Result diagrams: 09/21/19 10:25 09/21/19 10:25 <Lai Roque - Last Filed: 09/21/19 11:51> - Lab Data Result diagrams: 09/21/19 10:25 09/21/19 10:25 - EKG Data -: EKG Interpreted by Me (and Dr. Roque ) <Ed Cantor - Last Filed: 09/21/19 12:34> - Medical Decision Making Patient reevaluated and reexamined by myself, Dr. Roque. Patient resting comfortably in bed. Patient does admit to having some dyspnea. Patient has bilateral leg edema. Breath sounds are diminished bilaterally. Results reviewed. Case discussed with Dr. Gaffney, who will admit covered for Dr. Chiu, who admits for Dr. Brooks. (Lai Roque) 88-year-old female patient with past history significant for hypertension, coronary artery disease, congestive heart failure presents to ED for chief complaint of shortness of breath. Patient was difficult last 3 days she has had mild dyspnea. Also reports that she has had leg swelling. Patient does reportedly take Lasix 40 mg once per day at night. Denies any chest pain. Joshua hawthorne has been quarantining at home denies any other complaints. Patient will signs are stable, afebrile. Physical exam displayed mild crackles noted at lung bases. +2 lower extremity edema bilaterally. Laboratory investigations significant for BNP 3120 slightly higher than baseline. Patient EKG does reveal atrial fibrillation which patient has history. Patient is not anticoagulated due to history of intracranial hemorrhage. Chest x-ray displayed COPD, cardiomegaly. Chronic atelectasis involving the right middle lobe. Patient was administered home dose of Lasix IV. D-dimer was elevated outpatient CTA is pending. Patient will be admitted for further evaluation dyspnea. Case discus sed with Dr. Roque. (Ed Cantor) - Lab Data Lab Results 09/21/19 09/21/19 09/21/19 Range/Units 10:25 10:25 10:25 WBC 6.7 (3.8-10.6) k/uL RBC 3.97 (3.80-5.40) m/uL Hgb 13.1 (11.4-16.0) gm/dL Hct 38.7 (34.0-46.0) % MCV 97.6 (80.0-100.0) fL MCH 32.9 (25.0-35.0) pg MCHC 33.7 (31.0-37.0) g/dL RDW 13.8 (11.5-15.5) % Plt Count 175 (150-450) k/uL Neutrophils % 76 % Lymphocytes % 14 % Monocytes % 6 % Eosinophils % 3 % Basophils % 1 % Neutrophils # 5.1 (1.3-7.7) k/uL Lymphocytes # 0.9 L (1.0-4.8) k/uL Monocytes # 0.4 (0-1.0) k/uL Eosinophils # 0.2 (0-0.7) k/uL Basophils # 0.0 (0-0.2) k/uL D-Dimer (<0.60) mg/L FEU Sodium 138 (137-145) mmol/L Potassium 4.3 (3.5-5.1) mmol/L Chloride 105 (98-107) mmol/L Carbon Dioxide 24 (22-30) mmol/L Anion Gap 9 mmol/L BUN 25 H (7-17) mg/dL Creatinine 0.98 (0.52-1.04) mg/dL Est GFR (CKD-EPI)AfAm 59 (>60 ml/min/1.73 sqM) Est GFR (CKD-EPI)NonAf 51 (>60 ml/min/1.73 sqM) Glucose 126 H (74-99) mg/dL Calcium 9.2 (8.4-10.2) mg/dL Phosphorus 3.5 (2.5-4.5) mg/dL Magnesium 2.0 (1.6-2.3) mg/dL Total Bilirubin 1.0 (0.2-1.3) mg/dL AST 33 (14-36) U/L ALT 21 (4-34) U/L Alkaline Phosphatase 69 (38-126) U/L Troponin I (0.000-0.034) ng/mL NT-Pro-B Natriuret Pep 3720 pg/mL Total Protein 6.9 (6.3-8.2) g/dL Albumin 3.9 (3.5-5.0) g/dL Coronavirus (PCR) (Not Detectd) 09/21/19 09/21/19 09/21/19 Range/Units 10:25 10:25 11:30 WBC (3.8-10.6) k/uL RBC (3.80-5.40) m/uL Hgb (11.4-16.0) gm/dL Hct (34.0-46.0) % MCV (80.0-100.0) fL MCH (25.0-35.0) pg MCHC (31.0-37.0) g/dL RDW (11.5-15.5) % Plt Count (150-450) k/uL Neutrophils % % Lymphocytes % % Monocytes % % Eosinophils % % Basophils % % Neutrophils # (1.3-7.7) k/uL Lymphocytes # (1.0-4.8) k/uL Monocytes # (0-1.0) k/uL Eosinophils # (0-0.7) k/uL Basophils # (0-0.2) k/uL D-Dimer 4.49 H (<0.60) mg/L FEU Sodium (137-145) mmol/L Potassium (3.5-5.1) mmol/L Chloride (98-107) mmol/L Carbon Dioxide (22-30) mmol/L Anion Gap mmol/L BUN (7-17) mg/dL Creatinine (0.52-1.04) mg/dL Est GFR (CKD-EPI)AfAm (>60 ml/min/1.73 sqM) Est GFR (CKD-EPI)NonAf (>60 ml/min/1.73 sqM) Glucose (74-99) mg/dL Calcium (8.4-10.2) mg/dL Phosphorus (2.5-4.5) mg/dL Magnesium (1.6-2.3) mg/dL Total Bilirubin (0.2-1.3) mg/dL AST (14-36) U/L ALT (4-34) U/L Alkaline Phosphatase (38-126) U/L Troponin I <0.012 (0.000-0.034) ng/mL NT-Pro-B Natriuret Pep pg/mL Total Protein (6.3-8.2) g/dL Albumin (3.5-5.0) g/dL Coronavirus (PCR) Not Detected (Not Detectd) - EKG Data EKG Comments: Ventricular rate 67, QRS 90, QT/QTc 456/41. Atrial fibrillation, rightward axis. Low voltage QRS. No concern for acute ischemia. (Ed Cantor) Disposition <Lai Roque - Last Filed: 09/21/19 11:51> <Ed Cantor - Last Filed: 09/21/19 12:34> Clinical Impression: Dyspnea Disposition: ADMITTED IP TO THIS [facility] Condition: Serious Referrals: Jarrod Brooks DO [Primary Care Provider] - 1-2 days
[2019-09-21] MEDS ORDERED: NALOXONE 0.4 MG/ML 1 ML VIAL IV PRN (12:33)
[2019-09-21 12:38] LABS: Appearance,Urine Clear (Clear); Bacteria,Urine Rare /hpf; Bilirubin,Urine Negative (Negative); Blood,Urine Trace (Negative); Color,Urine Yellow; Glucose,Urine (UA) Negative (Negative); Hyaline Casts,Urine 27 /lpf (0-2); Ketones,Urine Negative (Negative); Leukocyte Esterase,Urine Trace (Negative); Mucus,Urine Rare /hpf; Nitrite,Urine Negative (Negative); PH, Urine 5.5 (5.0-8.0); Protein,Urine Negative (Negative); RBC,Urine 2 /hpf (0-5); Specific Gravity,Urine 1.012 (1.001-1.035); Squamous Epithelial Cell,Urine 1 /hpf (0-4); Urobilinogen,Urine <2.0 mg/dL (<2.0); WBC,Urine 2 /hpf (0-5)
--- NOTE | 2019-09-21 13:55 | CT ---
EXAMINATION TYPE: CT chest angio for PE DATE OF EXAM: 09/21/2019 COMPARISON: None. HISTORY: dyspnea, elevated d dimer CT DLP: 294.3 mGycm Automated exposure control for dose reduction was used. CONTRAST: CT Chest for pulmonary embolism performed with with IV Contrast, patient injected with 80 mL of Isovu e 370. FINDINGS: There are small, bilateral effusions, greater on the right than left. There is atelectatic change present at the lung bases. There is nonspecific adenopathy in the right axilla. There is no definite mediastinal or hilar adenop athy. There is no evidence of pulmonary embolus. The aorta is normal in caliber without evidence of dissection. The heart is enlarged. There is no per icardial fluid. There is granulomatous change within the spleen. There is hypertrophic spondylosis and degenerative disc disease within the spine. There has been a pr evious midline sternotomy. IMPRESSION: 1. THIS EXAMINATION IS NEGATIVE FOR PULMONARY EMBOLUS. 2. BILATERAL EFFUSIONS SLIGHTLY LARGER ON THE RIGHT THAN THE LEFT. 3. CARDIOMEGALY. 4. NONSPECIFIC ADENOPATHY IN THE RIGHT AXILLA. 5. 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 6. DEGENERATIVE CHANGES WITHIN THE SPINE.
[2019-09-21] MEDS: ATORVASTATIN 10 MG TAB PO SCH (20:08)
[2019-09-21] MEDS: FUROSEMIDE 10 MG/ML 2 ML VIAL IV SCH (20:08)
[2019-09-21] MEDS: ALPRAZolam 0.25 MG TAB PO SCH (21:56)
--- NOTE | 2019-09-22 00:09 | P.HPIM ---
History of Present Illness H&P Date: 09/21/19 Chief Complaint: Leg swelling Patient is a 88-year-old female with a known history of chronic CHF with diastolic dysfunction, atrial fibrillation currently not on anticoagulation, coronary artery disease with history of CABG, hypertension, osteoarthritis came to ER with complaints of bilateral lower swelling and shortness of breath. Patient says that she has been having increased swelling and minimal dyspnea for the past 3 days which is worsening. Patient does take Lasix at home. No complaints of chest pain. No palpitations. Denied any complaints of fever. No cough or sputum production. Patient has been quadrant and herself at home. Patient lives by herself. Was brought to the hospital by her daughter. EKG showed atrial fibrillation. Chest x-ray showed COPD, cardiomegaly, chronic density silhouetting the right heart border representing chronic atelectasis involving the right middle lobe. CT angiogram is negative for pulmonary embolism. Bilateral pleural effusion slightly larger on the right than the left. Cardiomegaly. D-dimer 4.49 BNP 3720, troponin 3 negative. Coronary is PCR negative. Patient was given a dose of IV Lasix in the ER. Review of Systems Constitutional: Patient denies any fever or chills . No generalized weakness or weight loss. Abdomen: Patient denied nausea vomiting and diarrhea and abdominal pain. Cardiovascular: Patient denies any chest pain . Does have short of breath no palpitations. Increased leg swelling. Respiratory: patient denied any cough is from production. No shortness of breath Neurologic: Patient denied any numbness or tingling headache. Musculoskeletal: Patient denies any complaints of joint swelling or deformity. Skin: Negative Psychiatric: Negative Endocrine: No heat or cold intolerance. No recent weight gain. Genitourinary: No dysuria or hematuria. All other 14 point ROS negative except the above Past Medical History Past Medical History: Coronary Artery Disease (CAD), Heart Failure, Hype rtension, Osteoarthritis (OA) History of Any Multi-Drug Resistant Organisms: None Reported Past Surgical History: Coronary Bypass/CABG Additional Past Surgical History / Comment(s): open heart surgery about 22 years ago Past Anesthesia/Blood Transfusion Reactions: No Reported Reaction Past Psychological History: No Psychological Hx Reported Smoking Status: Never smoker Past Alcohol Use History: None Reported Past Drug Use History: None Reported Medications and Allergies Home Medications Medication Instructions Recorded Confirmed Type ALPRAZolam [Xanax] 0.125 mg PO HS 06/27/15 09/21/19 History Atorvastatin [Lipitor] 10 mg PO HS 06/27/15 09/21/19 History Metoprolol Tartrate [Lopressor] 50 mg PO DAILY 06/27/15 09/21/19 History amLODIPine [Norvasc] 10 mg PO DAILY 06/27/15 09/21/19 History Potassium Chloride [K-Tab ER] 20 meq PO DAILY #30 tablet.er 11/25/18 09/21/19 Rx Aspirin EC [Ecotrin Low Dose] 81 mg PO DAILY 09/21/19 09/21/19 History Furosemide [Lasix] 20 mg PO BID 09/21/19 09/21/19 History Allergies Allergy/AdvReac Type Severity Reaction Status Date / Time No Known Allergies Allergy Verified 09/21/19 12:37 Physical Exam Vitals: Vital Signs Temp Pulse Pulse Resp BP BP Pulse Ox 09/21/19 19:51 97.9 F 66 18 132/61 95 09/21/19 16:48 68 18 128/70 97 09/21/19 13:37 97.2 F L 60 16 129/82 96 09/21/19 11:30 62 16 120/64 97 09/21/19 10:30 24 09/21/19 09:54 98.3 F 67 18 117/71 97 Intake and Output 09/21/19 09/21/19 09/21/19 06:59 14:59 22:59 Intake Total 120 Output Total 200 450 Balance -200 -330 Intake: Oral 120 Output: Urine 200 450 Other: Voiding Method Toilet # Voids 1 Weight 63.503 kg PHYSICAL EXAMINATION: Patient is lying in the bed comfortably, no acute distress, awake alert and oriented. Hard of hearing. HEENT: Normocephalic. Neck is supple. Pupils reactive. Nostrils clear. Oral cavity is moist. Ears reveal no drainage. Neck reveals no JVD, carotid bruits, or thyromegaly. CHEST EXAMINATION: Trachea is central. Symmetrical expansion. Bibasilar diminished air entry. No wheezing. Lung lopez clear to auscultation and percussion. CARDIAC: Normal S1, S2 with no gallops. No murmurs . Irregular rhythm ABDOMEN: Soft. Bowel sounds normal. No organomegaly. No abdominal bruits. Extremities: 2+ bilateral pedal edema, mainly the ankles. No clubbing or cyanosis Neurologically awake, alert, oriented x3 with well-coordinated movements. Hard of hearing. No focal deficits noted Skin: No rash or skin lesions. Psychiatric: Coperative. Nonsuicidal Musculoskeletal: No joint swelling or deformity. Normal range of motion. Results CBC & Chem 7: 09/21/19 10:25 09/21/19 10:25 Labs: Abnormal Lab Results - Last 24 Hours (Table) 09/21/19 09/21/19 09/21/19 Range/Units 10:25 10:25 10:25 Lymphocytes # 0.9 L (1.0-4.8) k/uL D-Dimer 4.49 H (<0.60) mg/L FEU BUN 25 H (7-17) mg/dL Glucose 126 H (74-99) mg/dL Urine Blood (Negative) Ur Leukocyte Esterase (Negative) Urine Bacteria (None) /hpf Hyaline Casts (0-2) /lpf Urine Mucus (None) /hpf 09/21/19 Range/Units 12:00 Lymphocytes # (1.0-4.8) k/uL D-Dimer (<0.60) mg/L FEU BUN (7-17) mg/dL Glucose (74-99) mg/dL Urine Blood Trace H (Negative) Ur Leukocyte Esterase Trace H (Negative) Urine Bacteria Rare H (None) /hpf Hyaline Casts 27 H (0-2) /lpf Urine Mucus Rare H (None) /hpf Thrombosis Risk Factor Assmnt - DVT/VTE Prophylaxis DVT/VTE Prophylaxis: Pharmacologic Prophylaxis ordered - Choose All That Apply Any of the Below Risk Factors Present?: No Each Risk Factor Represents 3 Points: Age 75 years or older Thrombosis Risk Factor Assessment Total Risk Factor Score: 3 Thrombosis Risk Factor Assessment Level: Moderate Risk Assessment and Plan Assessment: Worsening leg swelling and dyspnea likely due to acute on chronic CHF with diastolic dysfunction Bilateral pleural effusion right greater than left Elevated d-dimer level. CTA negative for pulmonary embolism. Chronic atrial fibrillation. Rate controlled. Not on anticoagulation at home. Coronary artery disease with history of CABG Hypertension Osteoarthritis DVT prophylaxis with heparin subcu Plan: Patient will be continued on Lasix 20 mg twice daily and monitor blood pressure and renal function closely. Continue with aspirin, statins and metoprolol. Patient also takes Norvasc at home. CT angiogram is negative for pulmonary embolism. Cardiology was consulted and further recommendations based on the clinical course. Time with Patient: Greater than 30
[2019-09-22] MEDS: HEPARIN SODIUM,PORCINE 5,000 UNIT/ML 1 ML VIAL SQ SCH ×4 (01:17→22:44)
[2019-09-22 06:58] LABS: Basophils % (A) 1 %; Eosinophils # (A) 0.2 k/uL (0-0.7); Eosinophils % (A) 3 %; HCT 34.2 % (34.0-46.0); HGB 11.8 gm/dL (11.4-16.0); Lymphocytes % (A) 18 %; MCH 32.1 pg (25.0-35.0); MCHC 34.4 g/dL (31.0-37.0); MCV 93.2 fL (80.0-100.0); Mean Platelet Volume 8.4; Monocytes # (A) 0.4 k/uL (0-1.0); Monocytes % (A) 8 %; Neutrophils # (A) 3.8 k/uL (1.3-7.7); Neutrophils % (A) 69 %; Platelet Count 171 k/uL (150-450); RBC 3.67 m/uL (3.80-5.40); RDW 14.1 % (11.5-15.5); WBC 5.6 k/uL (3.8-10.6)
[2019-09-22 07:09] LABS: Calcium 8.7 mg/dL (8.4-10.2); Potassium 3.1 mmol/L (3.5-5.1)
[2019-09-22] MEDS: FUROSEMIDE 10 MG/ML 2 ML VIAL IV SCH ×2 (08:19→20:38)
[2019-09-22] MEDS: ASPIRIN 81 MG PO SCH (08:19)
[2019-09-22] MEDS: METOPROLOL TARTRATE 50 MG TAB PO SCH (08:19)
[2019-09-22] MEDS: POTASSIUM CHLORIDE ER 20 MEQ TAB.ER PO SCH (08:20)
--- NOTE | 2019-09-22 10:07 | US ---
EXAMINATION TYPE: US venous doppler duplex LE DATE OF EXAM: 09/22/2019 12:06 AM COMPARISON: NONE CLINICAL HISTORY: Leg swelling. SIDE PERFORMED: Bilateral TECHNIQUE: The lower extremity deep venous system is examined utilizing real time linear array sonog chitra with graded compression, doppler sonography and color-flow sonography. VESSELS IMAGED: External Iliac Vein (EIV) Common Femoral Vein Deep Femoral Vein Greater Saphenous Vein * Femoral Vein Popliteal Vein Small Saphenous Vein * Proximal Calf Veins (* superficial vessels) Right Leg: Negative for DVT Left Leg: Negative for DVT No popliteal fossa lesion is seen. IMPRESSION: THIS EXAMINATION IS NEGATIVE FOR DVT IN BOTH LEGS.
--- NOTE | 2019-09-22 15:15 | P.CRDCN ---
History of Present Illness Consult date: 09/22/19 History of present illness: This is Dr. SEPULVEDA dictating a consult note on this patient Impression: Patient presented with . She has orthopnea as well as shortness of b She has bilateral pleur Pansystolic murmur consistent with mitral re Plan: 2-D echo Doppler study Continue diuretics History of present illness: Patient presents to the hospital with shortness of breath for the last 3 days including lower extremity edema She has a history of hypertension coronary artery disease congestive heart failure She denied any fever or chills She was afebrile 98.3F pulse rate in the 60s, blood pressure 120/64 mmHg in the ER for Review of systems No fever chills or rigors No cough phlegm or expectoration No nausea vomiting or diarrhea No hematuria dysuria No muscular skeletal complaints No neurologic complaints No skin lesions On examination VitalsBlood pressure 139/60 mmHg pulse rate in the 60s Afebrile temperature 98.7 Patient looks comfortable Pansystolic murmur over Breath sounds are reduc especially at bases AbdMinimal lower extremity Review of data CT of the chest did not show any evidence for pulmonary embolism She had bilateral pleural effusions slightly larger than the right No evidence for aortic dissection no pericardial effusion No granulomas in the spleen noted Twelve-lead EKG shows atrial fibrillation with a controlled ventricular response Medications reviewed and include Lipitor Lopressor 50 g twice daily Lasix 20 mg twice daily amlodipine 10 mg daily oral potassium and baby aspirin Labs are reviewed hemoglobin 13.1 Sodium 138 potassium 4.3 BUN 25 creatinine 0.98 Normal troponins Past Medical History Past Medical History: Coronary Artery Disease (CAD), Heart Failure, Hypertension, Osteoarthritis (OA) History of Any Multi-Drug Resistant Organisms: None Reported Past Surgical History: Coronary Bypass/CABG Additional Past Surgical History / Comment(s): open heart surgery about 22 years ago Past Anesthesia/Blood Transfusion Reactions: No Reported Reaction Past Psychological History: No Psychological Hx Reported Smoking Status: Never smoker Past Alcohol Use History: None Reported Past Drug Use History: None Reported Medications and Allergies Home Medications Medication Instructions Recorded Confirmed Type ALPRAZolam [Xanax] 0.125 mg PO HS 06/27/15 09/21/19 History Atorvastatin [Lipitor] 10 mg PO HS 06/27/15 09/21/19 History Metoprolol Tartrate [Lopressor] 50 mg PO DAILY 06/27/15 09/21/19 History amLODIPine [Norvasc] 10 mg PO DAILY 06/27/15 09/21/19 History Potassium Chloride [K-Tab ER] 20 meq PO DAILY #30 tablet.er 11/25/18 09/21/19 Rx Aspirin EC [Ecotrin Low Dose] 81 mg PO DAILY 09/21/19 09/21/19 History Furosemide [Lasix] 20 mg PO BID 09/21/19 09/21/19 History Allergies Allergy/AdvReac Type Severity Reaction Status Date / Time No Known Allergies Allergy Verified 09/21/19 12:37 Physical Exam Vitals: Vital Signs Temp Pulse Pulse Resp BP BP Pulse Ox 09/21/19 16:48 68 18 128/70 97 09/21/19 13:37 97.2 F L 60 16 129/82 96 09/21/19 11:30 62 16 120/64 97 09/21/19 10:30 24 09/21/19 09:54 98.3 F 67 18 117/71 97 Intake and Output 09/21/19 09/21/19 09/21/19 06:59 14:59 22:59 Intake Total 120 Output Total 200 Balance -200 120 Intake: Oral 120 Output: Urine 200 Other: # Voids 1 Weight 63.503 kg Results 09/22/19 06:06 09/22/19 06:06 Cardiac Enzymes 09/21/19 09/21/19 09/21/19 Range/Units 10:25 10:25 17:25 AST 33 (14-36) U/L Troponin I <0.012 <0.012 (0.000-0.034) ng/mL CBC 09/21/19 Range/Units 10:25 WBC 6.7 (3.8-10.6) k/uL RBC 3.97 (3.80-5.40) m/uL Hgb 13.1 (11.4-16.0) gm/dL Hct 38.7 (34.0-46.0) % Plt Count 175 (150-450) k/uL Comprehensive Metabolic Panel 09/21/19 Range/Units 10:25 Sodium 138 (137-145) mmol/L Potassium 4.3 (3.5-5.1) mmol/L Chloride 105 (98-107) mmol/L Carbon Dioxide 24 (22-30) mmol/L BUN 25 H (7-17) mg/dL Creatinine 0.98 (0.52-1.04) mg/dL Glucose 126 H (74-99) mg/dL Calcium 9.2 (8.4-10.2) mg/dL AST 33 (14-36) U/L ALT 21 (4-34) U/L Alkaline Phosphatase 69 (38-126) U/L Total Protein 6.9 (6.3-8.2) g/dL Albumin 3.9 (3.5-5.0) g/dL Current Medications Generic Name Dose Route Start Last Admin Trade Name Freq PRN Reason Stop Dose Admin Alprazolam 0.125 mg 09/21/19 21:00 Xanax PO HS [facility] Aspirin 81 mg 09/22/19 09:00 Aspirin PO DAILY [facility] Atorvastatin Calcium 10 mg 09/21/19 21:00 Lipitor PO HS [facility] Furosemide 20 mg 09/21/19 21:00 Lasix IV Q12HR [facility] Metoprolol Tartrate 50 mg 09/22/19 09:00 Lopressor PO DAILY [facility] Naloxone HCl 0.2 mg 09/21/19 12:33 Narcan IV Q2M PRN Opioid Reversal Potassium Chloride 20 meq 09/22/19 09:00 K-Dur 20 PO DAILY [facility]LE[facility] Intake and Output 09/21/19 09/21/19 09/21/19 06:59 14:59 22:59 Intake Total 120 Output Total 200 Balance -200 120 Intake: Oral 120 Output: Urine 200 Other: # Voids 1 Weight 63.503 kg Patient Weight 09/22/19 06:59 Weight 63.503 kg 09/21/19 10:25 09/21/19 10:25
[2019-09-22] MEDS: ATORVASTATIN 10 MG TAB PO SCH (20:38)
[2019-09-22] MEDS: MELATONIN 1 MG TAB PO PRN (22:44)
[2019-09-22] MEDS: ALPRAZolam 0.25 MG TAB PO SCH (22:44)
--- NOTE | 2019-09-23 01:11 | P.PN ---
Subjective Progress Note Date: 09/22/19 Principal diagnosis: Acute CHF Patient is a 88-year-old female with a known history of chronic CHF with diastolic dysfunction, atrial fibrillation currently not on anticoagulation, coronary artery disease with history of CABG, hypertension, osteoarthritis came to ER with complaints of bilateral lower swelling and shortness of breath. Patient says that she has been having increased swelling and minimal dyspnea for the past 3 days which is worsening. Patient does take Lasix at home. No complaints of chest pain. No palpitations. Denied any complaints of fever. No cough or sputum production. Patient has been quadrant and herself at home. Patient lives by herself. Was brought to the hospital by her daughter. EKG showed atrial fibrillation. Chest x-ray showed COPD, cardiomegaly, chronic density silhouetting the right heart border representing chronic atelectasis involving the right middle lobe. CT angiogram is negative for pulmonary embolism. Bilateral pleural effusion slightly larger on the right than the left. Cardiomegaly. D-dimer 4.49 BNP 3720, troponin 3 negative. Coronary is PCR negative. Patient was given a dose of IV Lasix in the ER. 09/22/2019 Patient is currently sitting in the chair comfortably. Bilateral ankle swelling is better. Continued on Lasix otherwise. 2-D echocardiogram report is pending. Shortness of breath is improved as well. No complaints of fever or chills. Able to tolerate oral diet. Cardiology is following. No nausea vomiting or abdominal pain. No headache or dizziness. Current medications reviewed. Objective - Vital Signs Vital signs: Vital Signs Temp 98.3 F 09/22/19 15:19 Pulse 62 09/22/19 15:19 Resp 16 09/22/19 15:19 BP 111/56 09/22/19 15:19 Pulse Ox 98 09/22/19 15:19 Intake & Output 09/22/19 09/22/19 09/23/19 06:59 18:59 06:59 Intake Total 300 370 Output Total 1300 700 Balance -1000 -330 Weight 63.5 kg Intake: IV 10 0.9 10 Oral 300 360 Output: Urine 1300 700 Other: Voiding Method Toilet Toilet # Voids 1 1 - Exam PHYSICAL EXAMINATION: Patient is lying in the bed comfortably, no acute distress, awake alert and oriented. Hard of hearing. HEENT: Normocephalic. Neck is supple. Pupils reactive. Nostrils clear. Oral cavity is moist. Ears reveal no drainage. Neck reveals no JVD, carotid bruits, or thyromegaly. CHEST EXAMINATION: Trachea is central. Symmetrical expansion. Bibasilar diminished air entry. No wheezing. Lung lopez clear to auscultation and percussion. CARDIAC: Normal S1, S2 with no gallops. No murmurs . Irregular rhythm ABDOMEN: Soft. Bowel sounds normal. No organomegaly. No abdominal bruits. Extremities: 2+ bilateral pedal edema, mainly the ankles. No clubbing or cyanosis Neurologically awake, alert, oriented x3 with well-coordinated movements. Hard of hearing. No focal deficits noted Skin: No rash or skin lesions. Psychiatric: Coperative. Nonsuicidal Musculoskeletal: No joint swelling or deformity. Normal range of motion. - Labs CBC & Chem 7: 09/22/19 06:06 09/22/19 06:06 Labs: Abnormal Lab Results - Last 24 Hours (Table) 09/22/19 09/22/19 Range/Units 06:06 06:06 RBC 3.67 L (3.80-5.40) m/uL Potassium 3.1 L (3.5-5.1) mmol/L BUN 20 H (7-17) mg/dL Assessment and Plan Assessment: Worsening leg swelling and dyspnea likely due to acute on chronic CHF with diastolic dysfunction Bilateral pleural effusion right greater than left Elevated d-dimer level. CTA negative for pulmonary embolism. Chronic atrial fibrillation. Rate controlled. Not on anticoagulation at home. Coronary artery disease with history of CABG Hypertension Osteoarthritis DVT prophylaxis with heparin subcu Plan: Patient will be continued on Lasix 20 mg twice daily and monitor blood pressure and renal function closely. Continue with aspirin, statins and metoprolol. Patient also takes Norvasc at home. CT angiogram is negative for pulmonary embolism. Cardiology is following and further recommendations based on the clinical course. Time with Patient: Greater than 30
[2019-09-23] MEDS: POTASSIUM CHLORIDE ER 20 MEQ TAB.ER PO SCH (09:10)
[2019-09-23] MEDS: HEPARIN SODIUM,PORCINE 5,000 UNIT/ML 1 ML VIAL SQ SCH ×3 (09:10→23:26)
[2019-09-23] MEDS: METOPROLOL TARTRATE 50 MG TAB PO SCH (09:10)
[2019-09-23] MEDS: ASPIRIN 81 MG PO SCH (09:10)
[2019-09-23] MEDS: FUROSEMIDE 10 MG/ML 2 ML VIAL IV SCH ×2 (09:10→20:09)
--- NOTE | 2019-09-23 11:00 | ECHOF ---
Referral Reason:sob MEASUREMENTS -------- HEIGHT: 154.9 cm WEIGHT: 65.8 kg BP: 109/55 RVIDd: 3.7 cm (< 3.3) IVSd: 1.3 cm (0.6 - 1.1) LVIDd: 3.5 cm (3.9 - 5.3) LVPWd: 1.3 cm (0.6 - 1.1) IVSs: 1.6 cm LVIDs: 2.9 cm LVPWs: 1.6 cm LAESV Index (A-L): 58.42 ml/m Ao Diam: 2.7 cm (2.0 - 3.7) AV Cusp: 1.8 cm (1.5 - 2.6) LA Diam: 4.7 cm (2.7 - 3.8) MV EXCURSION: 13.536 mm (> 18.000) MV EF SLOPE: 82 mm/s (70 - 150) EPSS: 0.4 cm MV E Oliver: 1.30 m/s MV DecT: 275 ms MV A Oliver: 0.40 m/s MV E/A Ratio: 3.24 RAP: 15.00 mmHg RVSP: 55.81 mmHg FINDINGS -------- Sinus rhythm with extra systolic beats. This was a technically difficult study with suboptimal views. The left ventricular size is normal. There is mild concentric left ventricular hypertrophy. Overa ll left ventricular systolic function is normal with, an EF between 55 - 60 %. There is paradoxical /dysynergic septal motion consistent with right ventricular volume overload and/or elevated right tg tricular end-diastolic pressure. The right ventricle is mild to moderately enlarged. Normal LA size by volume 22+/-6 ml/m2. The right atrium is mildly enlarged. Lumason used The aortic valve is trileaflet and appears structurally normal. The mitral valve is normal. The mitral valve leaflets are moderately thickened. [id number] mitral regurgitation is present. The peak and mean MV gradients are 9.53mmHg 2.80mmHg as measured by doppler. Mild mitral stenosis. The tricuspid valve appears structurally normal. Severe tricuspid regurgitation present. There is moderate pulmonary hypertension. The right ventricular systolic pressure, as measured by Doppler, is 55.81mmHg. There is no pulmonic regurgitation present. The aortic root size is normal. The inferior vena cava is mildly dilated. There is no pericardial effusion. CONCLUSIONS -------- 1. Sinus rhythm with extra systolic beats. 2. This was a technically difficult study with suboptimal views. 3. The left ventricular size is normal. 4. There is mild concentric left ventricular hypertrophy. 5. Overall left ventricular systolic function is normal with, an EF between 55 - 60 %. 6. There is paradoxical/dysynergic septal motion consistent with right ventricular volume overload an d/or elevated right ventricular end-diastolic pressure. 7. The right ventricle is mild to moderately enlarged. 8. Normal LA size by volume 22+/-6 ml/m2. 9. The right atrium is mildly enlarged. 10. Lumason used 11. The aortic valve is trileaflet and appears structurally normal. 12. The mitral valve is normal. 13. The mitral valve leaflets are moderately thickened. 14. Dbtx-ru-ihbvaock mitral regurgitation is present. 15. The peak and mean MV gradients are 9.53mmHg 2.80mmHg as measured by doppler. 16. Mild mitral stenosis. 17. The tricuspid valve appears structurally normal. 18. Severe tricuspid regurgitation present. 19. There is moderate pulmonary hypertension. 20. The right ventricular systolic pressure, as measured by Doppler, is 55.81mmHg. 21. There is no pulmonic regurgitation present. 22. The aortic root size is normal. 23. The inferior vena cava is mildly dilated. 24. There is no pericardial effusion. HR COORDINATOR: Idalmis Manuel RDCS
--- NOTE | 2019-09-23 11:21 | P.PN ---
Subjective Progress Note Date: 09/23/19 This is a pleasant 88-year-old female who initially presented to the hospital with symptoms of shortness of breath for 3 day duration as well as lower extremity edema. Patient has a history of hypertension, coronary artery disease prior bypass surgery, hyperlipidemia, chronic congestive heart failure, hyperlipidemia, atrial fibrillation, not on anticoagulation.. She is in atrial fibrillation this morning, heart rate is under adequate control. She continues to be on IV Lasix. Laboratory data from today, white blood cell count 5.6, hemoglobin 11.8, platelet count 171. Sodium 138, potassium 3.1 BUN 20, creatinine 0.9. Patient doing very well this morning, she states that she had a good night, denies any chest pain, no shortness of breath. Objective - Vital Signs Vital signs: Vital Signs Temp 98.3 F 09/23/19 08:00 Pulse 65 09/23/19 08:00 Resp 16 09/23/19 08:00 BP 125/60 09/23/19 08:00 Pulse Ox 96 09/23/19 08:00 Intake & Output 09/22/19 09/23/19 09/23/19 18:59 06:59 18:59 Intake Total 370 240 Output Total 700 100 Balance -330 140 Weight 66 kg Intake: IV 10 0.9 10 Oral 360 240 Output: Urine 700 100 Other: Voiding Method Toilet Toilet # Voids 1 # Bowel Movements 0 - Exam PHYSICAL EXAMINATION: GENERAL: 88-year-old female in no acute distress at the time of my examination HEENT: Head is atraumatic, normocephalic. Pupils equal, round. Sclera anicteric. Conjunctiva are clear. Mucous membranes of the mouth are moist. Neck is supple. There is no elevated jugular venous pressure.no carotid bruit is heard. HEART EXAMINATION: Heart S1, S2 systolic murmur is heard. CHEST EXAMINATION: Lungs are clear to auscultation and precussion. No chest wall tenderness is noted on palpation or with deep breathing. ABDOMEN: Soft, nontender. Bowel sounds are heard. No organomegaly noted. EXTREMITIES: 2+ peripheral pulses with no evidence of peripheral edema and no [facility] tenderness noted. NEUROLOGIC patient is awake, alert and oriented X3 . - Labs CBC & Chem 7: 09/22/19 06:06 09/22/19 06:06 Assessment and Plan Plan: Assessment and plan #1 symptoms of shortness of breath, likely secondary to congestive heart failure, diastolic acute on chronic. #2 chronic persistent atrial fibrillation, not on anticoagulation, secondary to history of a brain bleed. #3 coronary artery disease with prior bypass surgery #4 hyperlipidemia #5 hypertension #6 pleural effusion #7 severe tricuspid regurg, moderate mitral regurg Plan We'll continue current dose of IV Lasix. Continue to monitor the intake and output along with daily weights and daily lytes BUN and creatinine. DNP note has been reviewed, I agree with a documented findings and plan of care. Patient was seen and examined.
--- NOTE | 2019-09-23 17:54 | P.PN ---
Progress Note - Text Progress Note Date: 09/23/19 Presenting complaint: Short of breath History of presenting complaint: nena is a 88-year-old female with a known history of chronic CHF with diastolic dysfunction, atrial fibrillation currently not on anticoagulation, coronary artery disease with history of CABG, hypertension, osteoarthritis came to ER with complaints of bilateral lower swelling and shortness of breath. Patient says that she has been having increased swelling and minimal dyspnea for the past 3 days which is worsening. Patient does take Lasix at home. No complaints of chest pain. No palpitations. Denied any complaints of fever. No cough or sputum production. Patient has been quadrant and herself at home. Patient lives by herself. Was brought to the hospital by her daughter. Admitted with acute CHF exacerbation from diastolic dysfunction EF 55-60%. Started on IV Lasix. Today-breathing better. Eating anywhere from 50-75 %. A bit tired. Review of systems: Was done for constitutional, cardiovascular, GI, pulmonary. relevant finding as above Active Medications Alprazolam (Xanax) 0.125 mg PO HS [facility] Last Admin: 09/22/19 22:44 Dose: 0.125 mg Documented by: Aspirin (Aspirin) 81 mg PO DAILY [facility] Last Admin: 09/23/19 09:10 Dose: 81 mg Documented by: Atorvastatin Calcium (Lipitor) 10 mg PO HS [facility] Last Admin: 09/22/19 20:38 Dose: 10 mg Documented by: Furosemide (Lasix) 20 mg IV Q12HR [facility] Last Admin: 09/23/19 09:10 Dose: 20 mg Documented by: Heparin Sodium (Porcine) (Heparin) 5,000 unit SQ Q8HR [facility] Last Admin: 09/23/19 15:28 Dose: 5,000 unit Documented by: Melatonin (Melatonin) 2 mg PO HS PRN PRN Reason: Insomnia Last Admin: 09/22/19 22:44 Dose: 2 mg Documented by: Metoprolol Tartrate (Lopressor) 50 mg PO DAILY [facility] Last Admin: 09/23/19 09:10 Dose: 50 mg Documented by: Naloxone HCl (Narcan) 0.2 mg IV Q2M PRN PRN Reason: Opioid Reversal Potassium Chloride (K-Dur 20) 20 meq PO DAILY [facility] Last Admin: 09/23/19 09:10 Dose: 20 meq Documented by: On examination: VITAL SIGNS: 98.4, 64, 16, 117/57, 95% on room air GENERAL APPEARANCE: Average build. Lying in bed, a bit tired HEENT: Normal external appearance of nose and ear. Oral cavity normal EYES: Pupils equal. Conjunctiva normal. NECK: JVD unable to assess. Mass not palpable. RESPIRATORY: Respiratory effort increased. Lungs-decreased breath sound CARDIOVASCULAR: Heart sounds irregular No edema. ABDOMEN: Soft. Liver and spleen not palpable. No tenderness. No mass palpable. PSYCHIATRY: Answering questions . INVESTIGATIONS, reviewed in the clinical context: 2-D echo-EF 55-60%, [id number] MR, secondary probably hypertension Admission testing: White count 5.6 platelets 171in 3.1 creatinine 0.90 Venous Doppler-negative for Doppler both the legs Chest x-ray showed COPD, cardiomegaly, chronic density silhouetting the right heart border representing chronic atelectasis involving the right middle lobe. CT angiogram is negative for pulmonary embolism. Bilateral pleural effusion slightly larger on the right than the left. Cardiomegaly. D-dimer 4.49 BNP 3720, troponin 3 negative. COVID-PCR negative. Assessment: -acute on chronic CHF with diastolic dysfunction, EF 55-60%, POA Bilateral pleural effusion right greater than left, from CHF Elevated d-dimer level. CTA negative for pulmonary embolism. Persistent atrial fibrillation. Rate controlled. Not on anticoagulation at home. Coronary artery disease with history of CABG Essential Hypertension Primary Osteoarthritis Plan: Patient is doing better prognosis admission. Appetite is gone up. Patient IV Lasix. Other medications to continue. Check labs in the morning.
[2019-09-23] MEDS: ATORVASTATIN 10 MG TAB PO SCH (20:09)
[2019-09-23] MEDS: ALPRAZolam 0.25 MG TAB PO SCH (22:17)
[2019-09-23] MEDS: MELATONIN 1 MG TAB PO PRN (22:17)
[2019-09-24 06:24] LABS: Calcium 8.5 mg/dL (8.4-10.2); Potassium 3.7 mmol/L (3.5-5.1)
[2019-09-24] MEDS: ASPIRIN 81 MG PO SCH (09:50)
[2019-09-24] MEDS: METOPROLOL TARTRATE 50 MG TAB PO SCH (09:50)
[2019-09-24] MEDS: POTASSIUM CHLORIDE ER 20 MEQ TAB.ER PO SCH (09:51)
[2019-09-24] MEDS: FUROSEMIDE 10 MG/ML 2 ML VIAL IV SCH ×2 (09:51→20:51)
[2019-09-24] MEDS: HEPARIN SODIUM,PORCINE 5,000 UNIT/ML 1 ML VIAL SQ SCH ×2 (09:51→16:47)
[2019-09-24] MEDS ORDERED: Potassium Replacement Protocol 1 EACH MISC MISCELLANE PRN (16:11)
[2019-09-24] MEDS ORDERED: POTASSIUM CHLORIDE ER 20 MEQ TAB.ER PO SCH (17:00)
--- NOTE | 2019-09-24 17:34 | P.PN ---
Progress Note - Text Progress Note Date: 09/24/19 Presenting complaint: Short of breath History of presenting complaint: nena is a 88-year-old female with a known history of chronic CHF with diastolic dysfunction, atrial fibrillation currently not on anticoagulation, coronary artery disease with history of CABG, hypertension, osteoarthritis came to ER with complaints of bilateral lower swelling and shortness of breath. Patient says that she has been having increased swelling and minimal dyspnea for the past 3 days which is worsening. Patient does take Lasix at home. No complaints of chest pain. No palpitations. Denied any complaints of fever. No cough or sputum production. Patient has been quadrant and herself at home. Patient lives by herself. Was brought to the hospital by her daughter. Admitted with acute CHF exacerbation from diastolic dysfunction EF 55-60%. Started on IV Lasix. Today-Breathing continues to feel better. Remains on IV Lasix. Eating better. Edema significant leak on down. Review of systems: Was done for constitutional, cardiovascular, GI, pulmonary. relevant finding as above Active Medications Alprazolam (Xanax) 0.125 mg PO HS [facility] Last Admin: 09/23/19 22:17 Dose: 0.125 mg Documented by: Aspirin (Aspirin) 81 mg PO DAILY [facility] Last Admin: 09/24/19 09:50 Dose: 81 mg Documented by: Atorvastatin Calcium (Lipitor) 10 mg PO HS [facility] Last Admin: 09/23/19 20:09 Dose: 10 mg Documented by: Furosemide (Lasix) 20 mg IV Q12HR [facility] Last Admin: 09/24/19 09:51 Dose: 20 mg Documented by: Heparin Sodium (Porcine) (Heparin) 5,000 unit SQ Q8HR [facility] Last Admin: 09/24/19 16:47 Dose: 5,000 unit Documented by: Melatonin (Melatonin) 2 mg PO HS PRN PRN Reason: Insomnia Last Admin: 09/23/19 22:17 Dose: 2 mg Documented by: Metoprolol Tartrate (Lopressor) 50 mg PO DAILY [facility] Last Admin: 09/24/19 09:50 Dose: 50 mg Documented by: Miscellaneous Information (Potassium Per Protocol) 1 each MISCELLANE DAILY PRN; Protocol PRN Reason: Per Protocol Naloxone HCl (Narcan) 0.2 mg IV Q2M PRN PRN Reason: Opioid Reversal Potassium Chloride (K-Dur 20) 20 meq PO DAILY [facility] Last Admin: 09/24/19 09:51 Dose: 20 meq Documented by: On examination: VITAL SIGNS: Recent 0.5, 60, 18, 126/56, 96% on room air GENERAL APPEARANCE: Sitting up in a chair, feeling better HEENT: Normal external appearance of nose and ear. Oral cavity normal EYES: Pupils equal. Conjunctiva normal. NECK: JVD unable to assess. Mass not palpable. RESPIRATORY: Respiratory effort normal Lungs-decreased breath sound CARDIOVASCULAR: Heart sounds irregular No edema. ABDOMEN: Soft. Liver and spleen not palpable. No tenderness. No mass palpable. PSYCHIATRY: Answering questions . INVESTIGATIONS, reviewed in the clinical context: Potassium 3.7 creatinine 0.7 Bicarbonate 32 Admission testing: White count 5.6 platelets 171in 3.1 creatinine 0.90 Venous Doppler-negative for Doppler both the legs Chest x-ray showed COPD, cardiomegaly, chronic density silhouetting the right heart border representing chronic atelectasis involving the right middle lobe. CT angiogram is negative for pulmonary embolism. Bilateral pleural effusion slightly larger on the right than the left. Cardiomegaly. D-dimer 4.49 BNP 3720, troponin 3 negative. COVID-PCR negative. 2-D echo-EF 55-60%, [id number] MR, secondary probably hypertension Assessment: -acute on chronic CHF with diastolic dysfunction, EF 55-60%, POA, improving Bilateral pleural effusion right greater than left, from CHF Elevated d-dimer level. CTA negative for pulmonary embolism. Persistent atrial fibrillation. Rate controlled. Not on anticoagulation at home. Coronary artery disease with history of CABG Essential Hypertension Primary Osteoarthritis Plan: Patient is doing better prognosis admission. Appetite is gone up. Patient on IV Lasix. Patient much improved. Eager to go home. Switched to by mouth Lasix in the morning.
[2019-09-24] MEDS: ALPRAZolam 0.25 MG TAB PO SCH (20:50)
[2019-09-24] MEDS: ATORVASTATIN 10 MG TAB PO SCH (20:51)
[2019-09-25] MEDS: HEPARIN SODIUM,PORCINE 5,000 UNIT/ML 1 ML VIAL SQ SCH ×2 (02:14→08:52)
[2019-09-25 05:59] VITALS: RESP 16; TEMP 98.5
[2019-09-25 07:02] LABS: Calcium 8.9 mg/dL (8.4-10.2); Potassium 3.9 mmol/L (3.5-5.1)
[2019-09-25] MEDS: POTASSIUM CHLORIDE ER 20 MEQ TAB.ER PO SCH (08:52)
[2019-09-25] MEDS: ASPIRIN 81 MG PO SCH (08:52)
[2019-09-25] MEDS: METOPROLOL TARTRATE 50 MG TAB PO SCH (08:52)
[2019-09-25] MEDS ORDERED: FUROSEMIDE 20 MG TAB PO SCH (09:00)
[2019-09-25 11:40] VITALS: BP 143/71; PULSE 65
--- NOTE | 2019-09-25 11:52 | P.PN ---
Subjective Progress Note Date: 09/25/19 This is a pleasant 88-year-old female who initially presented to the hospital with symptoms of shortness of breath for 3 day duration as well as lower extremity edema. Patient has a history of hypertension, coronary artery disease prior bypass surgery, hyperlipidemia, chronic congestive heart failure, hyperlipidemia, atrial fibrillation, not on anticoagulation.. She is in atrial fibrillation this morning, heart rate is under adequate control. She continues to be on IV Lasix. Laboratory data from today, white blood cell count 5.6, hemoglobin 11.8, platelet count 171. Sodium 138, potassium 3.1 BUN 20, creatinine 0.9. Patient doing very well this morning, she states that she had a good night, denies any chest pain, no shortness of breath. 09/25/2019 Patient was seen and examined this morning, sitting up in the chair at bedside. Overall feels well, she is anticipating being discharged home today. Blood pressure 136/60 with a heart rate in the 70s. Objective - Vital Signs Vital signs: Vital Signs Temp 98.5 F 09/25/19 07:50 Pulse 65 09/25/19 11:10 Resp 16 09/25/19 11:10 BP 143/71 09/25/19 11:10 Pulse Ox 99 09/25/19 11:10 Intake & Output 09/24/19 09/25/19 09/25/19 18:59 06:59 18:59 Intake Total 460 240 Output Total 350 1500 1100 Balance 110 -1500 -860 Weight 70.5 kg Intake: Oral 460 240 Output: Urine 350 1500 1100 Other: Voiding Method Toilet Toilet Toilet # Voids 0 1 - Exam PHYSICAL EXAMINATION: GENERAL: 88-year-old female in no acute distress at the time of my examination HEENT: Head is atraumatic, normocephalic. Pupils equal, round. Sclera anicteric. Conjunctiva are clear. Mucous membranes of the mouth are moist. Neck is supple. There is no elevated jugular venous pressure.no carotid bruit is heard. HEART EXAMINATION: Heart S1, S2 systolic murmur is heard. CHEST EXAMINATION: Lungs are clear to auscultation and precussion. No chest wall tenderness is noted on palpation or with deep breathing. ABDOMEN: Soft, nontender. Bowel sounds are heard. No organomegaly noted. EXTREMITIES: 2+ peripheral pulses with trace evidence of peripheral edema , left greater than right . NEUROLOGIC patient is awake, alert and oriented X3 . - Labs CBC & Chem 7: 09/22/19 06:06 09/25/19 05:54 Labs: Abnormal Lab Results - Last 24 Hours (Table) 09/25/19 Range/Units 05:54 Carbon Dioxide 32 H (22-30) mmol/L Assessment and Plan Plan: Assessment and plan #1 symptoms of shortness of breath, likely secondary to congestive heart failure, diastolic acute on chronic. #2 chronic persistent atrial fibrillation, not on anticoagulation, secondary to history of a brain bleed. #3 coronary artery disease with prior bypass surgery #4 hyperlipidemia #5 hypertension #6 pleural effusion #7 severe tricuspid regurg, moderate mitral regurg Plan Patient may be discharged home today from cardiology's perspective, we will make a follow-up appointment in the office post discharge. DNP note has been reviewed, I agree with a documented findings and plan of care. Patient was seen and examined.
[2019-09-26] MEDS ORDERED: METOPROLOL TARTRATE 25 MG TAB PO SCH (09:00)
--- NOTE | 2019-09-26 21:17 | P.DS ---
Providers Date of admission: 09/23/19 19:17 Expected date of discharge: 09/25/19 Attending physician: Drew Chiu Consults: 09/21/19 12:33 Consult Physician Stat Consulting Provider: Toni Troy Consult Reason/Comments: dyspnea hx chf Do you want consulting provider notified?: Yes Primary care physician: [facility] Course: Presenting complaint: Short of breath History of presenting complaint: nena is a 88-year-old female with a known history of chronic CHF with diastolic dysfunction, atrial fibrillation currently not on anticoagulation, coronary artery disease with history of CABG, hypertension, osteoarthritis came to ER with complaints of bilateral lower swelling and shortness of breath. Patient says that she has been having increased swelling and minimal dyspnea for the past 3 days which is worsening. Patient does take Lasix at home. No complaints of chest pain. No palpitations. Denied any complaints of fever. No cough or sputum production. Patient has been quadrant and herself at home. Patient lives by herself. Was brought to the hospital by her daughter. Admitted with acute CHF exacerbation from diastolic dysfunction EF 55-60%. Started on IV Lasix. Today-the much better. Keep to go home. Edema gone down. On by mouth Lasix Consultation: Dr. Asif Calzada from cardiology On examination: VITAL SIGNS: 98.5, 74, 16, 136/65, 96% on room air GENERAL APPEARANCE: Sitting up in a chair, comfortable HEENT: Normal external appearance of nose and ear. Oral cavity normal EYES: Pupils equal. Conjunctiva normal. NECK: JVD unable to assess. Mass not palpable. RESPIRATORY: Respiratory effort normal Lungs-decreased breath sound CARDIOVASCULAR: Heart sounds irregular No edema. ABDOMEN: Soft. Liver and spleen not palpable. No tenderness. No mass palpable. PSYCHIATRY: Answering questions . INVESTIGATIONS, reviewed in the clinical context: Potassium 3.9 and creatinine 0.76 Admission testing: White count 5.6 platelets 171in 3.1 creatinine 0.90 Venous Doppler-negative for Doppler both the legs Chest x-ray showed COPD, cardiomegaly, chronic density silhouetting the right heart border representing chronic atelectasis involving the right middle lobe. CT angiogram is negative for pulmonary embolism. Bilateral pleural effusion slightly larger on the right than the left. Cardiomegaly. D-dimer 4.49 BNP 3720, troponin 3 negative. COVID-PCR negative. 2-D echo-EF 55-60%, [id number] MR, secondary probably hypertension Assessment: -acute on chronic CHF with diastolic dysfunction, EF 55-60%, POA, Bilateral pleural effusion right greater than left, from CHF Elevated d-dimer level. CTA negative for pulmonary embolism. Persistent atrial fibrillation. Rate controlled. Not on anticoagulation at home. Coronary artery disease with history of CABG Essential Hypertension Primary Osteoarthritis Disposition: Home Patient Condition at Discharge: Stable Plan - Discharge Summary Discharge Rx Participant: No New Discharge Prescriptions: New Furosemide [Lasix] 40 mg PO BID #60 tablet Metoprolol Tartrate [Lopressor] 25 mg PO BID #60 tab Continue ALPRAZolam [Xanax] 0.125 mg PO HS Atorvastatin [Lipitor] 10 mg PO HS Potassium Chloride [K-Tab ER] 20 meq PO DAILY #30 tablet.er Aspirin EC [Ecotrin Low Dose] 81 mg PO DAILY Discontinued Metoprolol Tartrate [Lopressor] 50 mg PO DAILY amLODIPine [Norvasc] 10 mg PO DAILY Furosemide [Lasix] 20 mg PO BID Discharge Medication List ALPRAZolam [Xanax] 0.125 mg PO HS 06/27/15 [History] Atorvastatin [Lipitor] 10 mg PO HS 06/27/15 [History] Potassium Chloride [K-Tab ER] 20 meq PO DAILY #30 tablet.er 11/25/18 [Rx] Aspirin EC [Ecotrin Low Dose] 81 mg PO DAILY 09/21/19 [History] Furosemide [Lasix] 40 mg PO BID #60 tablet 09/25/19 [Rx] Metoprolol Tartrate [Lopressor] 25 mg PO BID #60 tab 09/25/19 [Rx] Follow up Appointment(s)/Referral(s): cardiology, [Other] - 1 Week [facility], [NON-STAFF] - Jarrod Brooks DO [Primary Care Provider] - 1-2 days Patient Instructions/Handouts: Heart Failure (DC), A-fib (Atrial Fibrillation) (DC), Dyspnea (DC) Activity/Diet/Wound Care/Special Instructions: bmp - 5 days Discharge Disposition: HOME WITH HOME HEALTH SERVICES
== END 2019-09-25 13:17 | disposition home health service (06) | DRG 292 ==
LOC: EC 09:51 → 3SCARD 12:33 → INTOOBSV 12:33 → 3SCARD 16:27 → OBSVTOIN 09-23 19:17
PROVIDERS: ADMIT Hospitalist; ATTEND Hospitalist
DX: I11.0 Hypertensive heart disease with heart failure (principal); I48.19 Other persistent atrial fibrillation; J98.11 Atelectasis; I50.33 Acute on chronic diastolic (congestive) heart failure; Z95.1 Presence of aortocoronary bypass graft; J44.9 Chronic obstructive pulmonary disease, unspecified; Z20.828 Contact with and (suspected) exposure to other viral communicable diseases; I08.1 Rheumatic disorders of both mitral and tricuspid valves; E78.5 Hyperlipidemia, unspecified; I25.10 Atherosclerotic heart disease of native coronary artery without angina pectoris; M19.91 Primary osteoarthritis, unspecified site; H91.90 Unspecified hearing loss, unspecified ear; Z79.82 Long term (current) use of aspirin; Z79.899 Other long term (current) drug therapy; Z86.73 Personal history of transient ischemic attack (TIA), and cerebral infarction without residual deficits
CPT/HCPCS: 36415; 71046; 71275; 80048; 80053; 81001; 83735; 83880; 84100; 84484; 85025; 85379; 87635; 93005; 93306; 93970; 96374; 99285